=== PATIENT | male | born 1950 | race Caucasian/White ===

== ENCOUNTER 2019-03-13 13:34 | Inpatient (IN) ==
[2019-03-13] MEDS ORDERED: TORADOL IV ONE (14:00)
[2019-03-13] MEDS ORDERED: NS 1,000 ML IV ONE (14:01)
[2019-03-13 14:28] LABS: BASO# 0.04 X1000 (0.0-0.2); BASO% 0.4 % (0.0-0.8); EOS# 0.08 X1000 (0.0-0.7); EOS% 0.8 % (0.0-10.0); HEMOGLOBIN 8.2 g/dL (14.0-18.0); LYMPH# 0.94 X1000 (1.2-3.4); LYMPH% 9.2 % (20.5-51.1); MCH 28.4 PG (27-31); MCHC 31.5 g/dL (33-37); MONO# 0.63 X1000 (0.11-0.59); MONO% 6.2 % (1.7-9.3); MPV 9.5 FL (7.4-10.4); NEUT# 8.49 X1000 (1.4-6.5); NEUT% 83.4 % (42.2-75.2); PLT 125 X1000 (130-400); RBC 2.89 XMIL (4.7-6.1); RDW 15.2 % (11.5-14.5); WBC 10.18 X1000 (4.8-10.8)
--- NOTE | 2019-03-13 14:30 | Diag Imaging Result Doc PS360 ---
EXAM: CT ABD/PELVIS W/IV CONT ONLY HISTORY: abominal pain, pulsating abdomen TECHNIQUE: Emergency CT of the abdomen and pelvis with intravenous contrast COMPARISON: None. FINDINGS: There is an extremely large abdominal aortic aneurysm. This begins just beneath the renal arteries. This measures 12.1 cm in AP diameter and at least 13.6 cm in transverse diameter. This extends to the level of the common iliac arteries. The right common iliac artery measures 1.7 cm in diameter and the left common iliac artery measures 1.7 cm in diameter. There is a para-aortic hematoma on the right measuring 2 cm in thickness. This extends into the right pelvis. There is a 2.2 cm hepatic cyst and there is fatty infiltration of the liver. Normal spleen, pancreas, gallbladder, adrenal glands, and right kidney. There are left parapelvic renal cyst. No bowel obstruction. There is stool throughout the colon. The urinary bladder is distended and is normal. Small amount of free fluid is found in the pelvis. IMPRESSION: Extremely large abdominal aortic aneurysm with an adjacent hematoma. This report was discussed with Everette Kruse in the emergency room on 03/13/2019 at 2:25 PM and was readback. This exam was performed using automated exposure control, adjustment of mA or kV according to patient size, and/or use of iterative reconstruction technique. Electronically signed by Ben Hess 03/13/2019 2:28 PM
[2019-03-13 14:37] LABS: ALB/GLOB RATIO 1.4; ALBUMIN 3.2 g/dL (3.5-5.0); CALCIUM 8.3 mg/dL (8.8-10.2); CREATININE 1.3 mg/dL (0.7-1.2); POTASSIUM 4.3 mmol/L (3.5-5.1); TOTAL BILIRUBIN 0.21 mg/dL (0.20-1.00); TOTAL PROTEIN 5.5 g/dL (6.3-8.3)
[2019-03-13 14:43] LABS: INR 1.12; PROTIME 15.4 Seconds (11.0-16.0)
[2019-03-13 14:44] LABS: PTT 24.4 Seconds (22.3-41.8)
[2019-03-13] MEDS ORDERED: INVANZ 1 GM/NS 1 GM/50 ML IVPB IV ONE ×2 (14:46→16:50)
[2019-03-13] MEDS ORDERED: VERSED ONE ×2 (14:48→17:17)
[2019-03-13] MEDS ORDERED: FENTANYL ONE (14:48)
[2019-03-13] MEDS ORDERED: XYLOCAINE-MPF 2% ONE (14:48)
[2019-03-13] MEDS ORDERED: ZEMURON ONE ×3 (14:48→17:01)
[2019-03-13] MEDS ORDERED: QUELICIN (DOSE) ONE (14:48)
[2019-03-13] MEDS ORDERED: EPINEPHRINE SYRINGE ONE (14:49)
[2019-03-13] MEDS ORDERED: SODIUM BICARBONATE 8.4% ONE ×2 (14:49→16:29)
--- NOTE | 2019-03-13 14:51 | PROVIDER DOCUMENTATION ---
This chart was entered by Ashley Mendiola Scribe, acting as scribe for Everette Kruse MD. HPI-Abdominal Pain/GI Problem - General Chief Complaint: Abdominal Pain Stated Complaint: abdominal pain Time Seen by Provider: 03/13/19 13:41 Source: patient Allergies/Adverse Reactions: Patient Allergies Allergy/AdvReac Type Severity Reaction Status Date / Time No Known Allergies Allergy Verified 03/13/19 14:04 Home Medications: Home Medication List Medication Instructions Recorded Confirmed Last Taken Type NK [No Home Medications] 03/13/19 03/13/19 Unknown History - History of Present Illness-ABD Nature of Presenting Problems: Patient is a 68 year old male who presents to the ED via EMS with epigastric abdominal pain that radiates to back that started this morning. EMS states patient's blood pressure was 80 systolic. Does not report nausea and vomiting. Abdominal Pain Onset Location: reports: epigastric Pain Radiation: reports: back Quality of Pain: reports: sharp, tearing Severity in ED: reports: mild Onset/Duration: reports: this morning Timing: reports: still present Activities at Onset: reports: light activity Modifying Factors: improves with: nothing Associated Symptoms: reports: denies symptoms Similar Symptoms Previously?: No Recently seen or treated by another doctor?: No Review of Systems - Adult - REVIEW OF SYSTEMS - ADULT Constitutional: reports: no symptoms reported. denies: chills, fever, fatique Eyes: reports: no symptoms reported Ears, Nose, Mouth & Throat: reports: no symptoms reported Cardiovascular: reports: no symptoms reported Respiratory: reports: no symptoms reported Gastrointestinal: reports: see HPI, abdominal pain (epigastric). denies: diarrhea, nausea, vomiting Genitourinary: reports: no symptoms reported Musculoskeletal: reports: see HPI, back pain. denies: muscle aches, neck pain Integumentary: reports: no symptoms reported Neurological: reports: no symptoms reported Psychiatric: reports: no symptoms reported Endocrine: reports: no symptoms reported Hematologic/Lymphatic: reports: no symptoms reported Allergic/Immunologic: reports: no symptoms reported All Other Systems: Reviewed and Negative Past History - Adult - PAST MEDICAL HISTORY-ADULT Review of Records: reports: Nursing Assessment Review, Medications Reviewed, Social history reviewed & non-contributory. Major Childhood Illnesses: reports: denies history Cardiovascular: reports: denies history Respiratory: reports: denies history Gastrointestinal: reports: denies history Obstetrical/Gynecological: reports: denies history Genitourinary: reports: denies history Musculoskeletal: reports: denies history Neurological: reports: denies history Psychiatric: reports: denies history Endocrine/Immune: reports: denies history Other Conditions: reports: denies history - PRIOR SURGERIES/PROCEDURES Surgical/Procedure History: reports: reviewed, not pertinent - IMMUNIZATION STATUS Childhood Immunizations: See Nurse Assessment Flu Vaccine: See Nurse Assessment - FAMILY HISTORY Family History: reviewed, not pertinent - SOCIAL HISTORY Smoking: cigarettes, less than 1 pack/day Provider spent 3-5 mins advising pt. on dangers of tobacco.: Discussed manners to quit use, and f/u contacts for add'l counseling. Substance Use: denies Physical Exam-General - PHYSICAL EXAM-ADULT Initial Vital Signs Reviewed: Yes - CONSTITUTIONAL General Appearance: alert, no apparent distress. negative: lethargic, slow to respond - HEAD, EARS, NOSE, MOUTH & THROAT HENMT: normocephalic/atraumatic, moist mucous membranes. negative: angioedema, hearing deficit - RESPIRATORY Respiratory: chest non-tender, lungs clear, normal breath sounds. negative: crackles, rales, rhonchi - CARDIOVASCULAR Cardiovascular: normal peripheral pulses, regular rate, rhythm. negative: tachycardia, systolic murmur - GASTROINTESTINAL (ABDOMEN) Abdominal Exam: normal bowel sounds, rigid (epigastric), tenderness (epigastric) , mass (pulsating mass to right epigastric). negative: abdominal bruit - MUSCULOSKELETAL Extremity: non-tender, normal inspection. negative: deformity, erythema, swelling - SKIN Integumentary: normal color, normal turgor, warm/dry. negative: cyanosis, ecchymosis, erythema, jaundice - NEUROLOGIC Neurologic: grossly normal. negative: aphasia, facial droop - PSYCHIATRIC Psych/Mental Status: normal mood/affect, oriented x 3. negative: anxious, paranoid Progress - PLAN OF CARE/RESULTS Progress/Plan/Lab Results: Orders Category Date Time Status Saline Loc NOW Care 03/13/19 13:[address] ABD/PELVIS W/IV CONT ONLY [CT] Stat Exams 03/13/19 13:56 Ordered CBC WITH ELECTRONIC DIFF [HEME] Stat Lab 03/13/19 13:54 Uncollected COMPREHENSIVE METABOLIC PANEL [CHEM] Stat Lab 03/13/19 13:54 Uncollected URINALYSIS W/POSS RFLX CULT [URINALYSIS] Stat Lab 03/13/19 13:54 Uncollected 1433 - Dr. Kruse consulted with Dr. Varela about patient. Dr. Varela states he will be coming in with Dr. Brink for surgery. CT Scan shows 12x13 rupture AAA extending from beneath renal arteries to bifurcation of illiac arteries. Result Diagrams: 03/13/19 14:00 03/13/19 14:00 - EKG 1 Time of EKG reading by physician:: 14:33 EKG Read and Signed by:: Everette Kruse EKG Interpretation (*Must complete 3 of following elements*): Normal Rate: 70 Rhythm: normal sinus rhythm [place]: normal QRS: normal [place] Interval: normal ST Wave: normal Comments: normal ECG - CT/MRI 1 CT Study: Abdomen, Pelvis Impression: See EMR Report (EXAM: CT ABD/PELVIS W/IV CONT ONLY HISTORY: abominal pain, pulsating abdomen TECHNIQUE: Emergency CT of the abdomen and pelvis with intravenous contrast COMPARISON: None. FINDINGS: There is an extremely large abdominal aortic aneurysm. This begins just beneath the renal arteries. This measures 12.1 cm in AP diameter and at least 13.6 cm in transverse diameter. This extends to the level of the common iliac arteries. The right common iliac artery measures 1.7 cm in diameter and the left common iliac artery measures 1.7 cm in diameter. There is a para-aortic hematoma on the right measuring 2 cm in thickness. This extends into the right pelvis. There is a 2.2 cm hepatic cyst and there is fatty infiltration of the liver. Normal spleen, pancreas, gallbladder, adrenal glands, and right kidney. There are left parapelvic renal cyst. No bowel obstruction. There is stool throughout the colon. The urinary bladder is distended and is normal. Small amount of free fluid is found in the pelvis. IMPRESSION: Extremely large abdominal aortic aneurysm with an adjacent hematoma. This report was discussed with Everette Kruse in the emergency room on 03/13/2019 at 2:25 PM and was readback. This exam was performed using automated exposure control, adjustment of mA or kV according to patient size, and/or use of iterative reconstruction technique. Electronically signed by Ben Hess 03/13/2019 2:28 PM 03/13/19 1422 Interpreting Physician: Ben Hess MD Dictated Date/Time: 03/13/19 1423 cc: Everette Kruse MD; None,PCP) - CONSULTS/PCP/HOSPITALIST Notification #1 *Consult/PCP/Hospitalist*: Dr. Varela Time Discussed: 14:23 Reason/Comments: Dr. Kruse consulted with Dr. Varela about patient. Consult Disposition: other (Dr. Varela states he will contact Dr. Brink) #2 Consult: Dr. Hess (Radiologist) Time Discussed: 14:26 Reason/Comments: Dr. Kruse consulted with Dr. Hess about patient's CT. Consult Disposition: other (Dr. Hess states patient's CT shows a 12 by 13 cm abdominal aortic aneurysm with an adjacent hematoma) #3 Consult: Dr. Brink Time Discussed: 14:32 Reason/Comments: Dr. Kruse consulted with Dr. Brink about patient Consult Disposition: Will see in ED Departure - Departure Date of Disposition Decision: 03/13/19 Time of Disposition Decision: 14:45 (transfer to Surgery) DIAGNOSIS: AAA (abdominal aortic aneurysm, ruptured) Disposition: ADMITTED INPATIENT 09 Certified Medical Emergency: Emergent Condition: Critical Additional Freetext Instructions: We have examined and treated you today on an emergency basis only. This was not a substitute for, or an effort to provide, complete medical care. In most cases, you must let your doctor check you again. Tell your doctor about any new or lasting problems. We cannot recognize and treat all injuries or illnesses in one Emergency Department visit. If you had special tests, such as X-rays or CT scans, will be reviewed by radiologist and will call you if there are any new suggestions Follow up with primary care provider in 1 to 2 days if no improvement. If you do not have a primary care provider, you need to choose one as soon as possible. Take medicines as prescribed. Monitor for any side effects or adverse events from medications. If any side effect, adverse event or rash develops, or if you suspect any other adverse reaction to the medication, then discontinue the medication immediately and contact clinic /PCP or go to the nearest ER. Narcotic meds / sedative meds instruction - patent advised not to drive, operate any machinery or go into water after taking meds as it may impair mental ability to react to the situation in an appropriate manner. Continue other current medicines. Follow up with PCP within 24-48 hours, or sooner if symptoms worsen or fail to improve. Patient / guardian verbalizes understanding of treatment plan, medication, and side effects and agrees with treatment plan. Patient leaves ER in stable condition and ambulatory state. Return to ER as needed. Discharge instructions reviewed verbally and given to patient in written form. Follow up with primary care provider. Referrals and Follow-Ups: None,PCP [Primary Care Provider] - - Critical Care Note This patient required my direct & personal management of CC.: Yes Total Time (mins): 95 Critical Care Statement: This patient required my direct personal management to treat or rule out processes, the absence of which, could potentiallly result in sudden, clinically significant life or limb threatening deterioration. Attestation - Physician/ DARRELL Attestation Patient care was provided by Advanced Practice Provider:: No The physician spent face to face time with patient:: Yes Advanced Practice Provider documentation review:: Supervising physician onsite and consulted in the evaluation and care of this patient. The physician did have a face to face encounter with the patient. This chart was documented by the indicated scribe, (Ashley Mendiola Scribe) and accurately reflects the services I performed and decisions made by me, Everette Kruse MD, as attested by the provider's signature.
[2019-03-13] MEDS ORDERED: DIPRIVAN 1% ONE (14:57)
--- NOTE | 2019-03-13 15:07 | Diag Imaging Result Doc PS360 ---
EXAM: CHEST-1 VIEW HISTORY: surgery clear TECHNIQUE: Chest single view COMPARISON: None. FINDINGS: The lungs are well expanded. The heart is not enlarged. The vessels are not distended. There are no infiltrates. No effusion identified. IMPRESSION: No acute abnormality. Electronically signed by Ben Hess 03/13/2019 3:04 PM
[2019-03-13] MEDS ORDERED: PITRESSIN ONE (15:11)
[2019-03-13] MEDS ORDERED: NEO-SYNEPHRINE ONE ×2 (15:11→16:11)
[2019-03-13] MEDS ORDERED: SODIUM CHLORIDE 0.9% 10 ML ONE (15:12)
[2019-03-13] MEDS ORDERED: ALBUMIN 25% ONE (15:17)
[2019-03-13] MEDS ORDERED: MANNITOL ONE (15:40)
[2019-03-13] MEDS ORDERED: CALCIUM CHLORIDE ONE ×2 (15:43→16:07)
[2019-03-13] MEDS ORDERED: CALCIUM CHLORIDE SYRINGE ONE (16:29)
[2019-03-13] MEDS: NEO-SYNEPHRINE 50 MG in NS 250 ML IV SCH ×3 (17:42→21:57)
[2019-03-13] MEDS ORDERED: MORPHINE IV PRN (17:50)
--- NOTE | 2019-03-13 17:53 | Diag Imaging Result Doc PS360 ---
EXAM: KUB ABDOMEN HISTORY: postop - verify no retained items TECHNIQUE: Abdomen three views COMPARISON: None. FINDINGS: There are multiple midline skin helena. A nasogastric tube enters the stomach. No surgical clips or needle identified within the abdomen. Electronically signed by Ben Hess 03/13/2019 5:51 PM
[2019-03-13 18:09] LABS: ALLEN TEST NO; BE -6.4 mmoll (-3.0-3.0); BLOOD TYPE ARTERIAL; METHB 0.6 % (0.0-1.5); MODALITY VENTILATOR; O2(CT) 12.9 mL/dL (15.0-23.0); O2HB 97.3 % (95.0-99.0); PCO2(98.6) 41 mmHg (35-45); PO2(98.6) 138 mmHg (60-100); SAMPLE BLOOD; SAO2 99.6 % (95.0-100.0); SRATE 12 BPM; THB 9.2 g/dL (11.5-17.4); TVOL 650 mL; pH(98.6) 7.29 (7.35-7.45)
[2019-03-13] MEDS: LR 1,000 ML IV SCH (18:10)
[2019-03-13] MEDS: PROTONIX IV SCH (18:11)
[2019-03-13] MEDS: SODIUM CHLORIDE 0.9% INJ SCH (18:11)
--- NOTE | 2019-03-13 18:17 | Diag Imaging Result Doc PS360 ---
EXAM: CHEST-PORTABLE HISTORY: post op TECHNIQUE: Chest single view COMPARISON: 2:37 PM FINDINGS: Endotracheal tube in good position with the tip located 4 to 5 cm above the sofía. A nasogastric tube overlies the esophagus and stomach. The lungs are well expanded. Electronically signed by Ben Hess 03/13/2019 6:15 PM
[2019-03-13 18:29] LABS: URINE SOURCE CATH
[2019-03-13 18:30] LABS: AGAP 10; BUN 34 mg/dL (8-22); CALCIUM 9.5 mg/dL (8.8-10.2); CHLORIDE 108 mmol/L (98-107); COSMO 292; CREATININE 1.2 mg/dL (0.7-1.2); ESTIMATED GFR > 60; GLUCOSE 213 mg/dL (70-104); MAGNESIUM 1.9 mg/dL (1.5-2.7); POTASSIUM 4.8 mmol/L (3.5-5.1); SODIUM 139 mmol/L (136-145); TCO2 21 mmol/L (25-35)
[2019-03-13 18:35] LABS: BILIRUBIN URINE NEGATIVE (NEGATIVE); BLOOD URINE SMALL (NEGATIVE); COLOR YELLOW; GLUCOSE URINE NEGATIVE (NEGATIVE); KETONE URINE NEGATIVE (NEGATIVE); LEUKOCYTES URINE NEGATIVE (NEGATIVE); NITRITE URINE NEGATIVE (NEGATIVE); PH URINE 5.5; PROTEIN URINE 100 mg/dL (NEGATIVE); TURBIDITY URINE CLEAR (CLEAR); UROBILINOGEN URINE NORMAL (NORMAL)
[2019-03-13] MEDS: NS 500 ML IV SCH ×2 (18:35→19:47)
[2019-03-13 18:36] LABS: UR EPITHELIAL CELLS <10 /HPF (<10); URINE BACTERIA NEGATIVE /HPF; URINE WBC <10 /HPF (<10)
[2019-03-13 18:46] LABS: BASO# 0.03 X1000 (0.0-0.2); BASO% 0.3 % (0.0-0.8); EOS# 0.02 X1000 (0.0-0.7); EOS% 0.2 % (0.0-10.0); HEMATOCRIT 31.2 % (42.0-52.0); HEMOGLOBIN 10.3 g/dL (14.0-18.0); IMM GRAN# 0.04 X1000 (0.0-0.04); IMM GRAN% 0.4 % (0.0-0.5); LYMPH# 1.24 X1000 (1.2-3.4); LYMPH% 13.3 % (20.5-51.1); MCH 29.5 PG (27-31); MCV 89.4 FL (81-99); MONO% 6.4 % (1.7-9.3); MPV 9.8 FL (7.4-10.4); NEUT# 7.38 X1000 (1.4-6.5); NEUT% 79.4 % (42.2-75.2); PLT 48 X1000 (130-400); RBC 3.49 XMIL (4.7-6.1); RDW 14.7 % (11.5-14.5); WBC 9.31 X1000 (4.8-10.8)
--- NOTE | 2019-03-13 19:47 | OPERATIVE NOTE ---
PROCEDURE DATE: 03/13/2019 PREOP DIAGNOSIS: Ruptured abdominal aortic aneurysm. POSTOP: Ruptured abdominal aortic aneurysm. PROCEDURE PERFORMED: Open repair of ruptured abdominal aortic aneurysm with 16 x 8 cm bifurcated Dacron graft. ESTIMATED BLOOD LOSS: 8500 mL. SPECIMENS: Aneurysm contents. RN OFFICE: Dr. Brink was present for the entirety of the case. He facilitated exposure, repair, and control of the ruptured aneurysm. ANESTHESIA: General. INDICATIONS: This is a 68-year-old gentleman with acute onset of abdominal pain, self-reported pulsatile mass for quite some time. Imaging showed rupture into the right-sided retroperitoneum of a 13.6 cm aneurysm infrarenal to the bifurcation. FINDINGS: There was a contained retroperitoneal rupture of the large infrarenal aneurysm extending to the bifurcation of the left iliac into the common iliac on the right. OPERATIVE NOTE: Risks, benefits, alternatives discussed with the patient. He consented to the procedure, seen preoperatively and surgical site was confirmed. He was taken emergently to the operating room. IV antibiotics were administered. Trejo catheter was placed as well as a nasogastric tube. His hair was removed clippers. His abdomen was prepped widely with chlorhexidine and draped in the usual fashion. After time-out, made a midline incision from the xiphoid carrying down the pubis and entered the abdomen open controlled fashion. We gained immediate control of the supraceliac aneurysm dissecting the esophagus laterally using blunt dissection with a aortic clamp. We gained control here. We confirmed loss of pulse within the aneurysm sac. There was a very large hematoma pretty much encompassing the entire abdominal aorta down to the iliac. After gaining proximal control we opened the hematoma sac and identified the anterior wall of the aneurysm. This allowed us to identify the iliacs both on the left and the right and we gained control of these. At this point we had good inflow and outflow control. We extended our opening in the aneurysm sac up to the proximal neck. We gained control within the lumen using our hands. We were able to move an additional clamp below the renal vein in the renal arteries. At this point, we again confirmed good inflow and outflow control. After inspecting proximally we selected a 16 mm Dacron graft and using a 3-0 Prolene suture we created a proximal anastomosis. We then took off our aortic clamp. Some repair sutures were required and we did this but had good hemostasis proximally. We then created a left iliac anastomose proximal to the bifurcation using another 3-0 Prolene in the end to end fashion. We trimmed the graft and beveled it to provide good size match. We took off our clamp and then perfused the left leg. He tolerated this well. We then in a similar fashion created a end-to-end anastomosis on the right. We noted good back bleeding prior to completion both of the legs and suctioned the thrombus from the graft noting good inflow. We flushed this well. Completed our anastomosis. There was good femoral pulses noted at this point. There were some repair sutures required. Blood pressure was normal at this point with his ongoing resuscitation and there was no bleeding noted. We did hold pressure on the needle hole proximally but we were able to get hemostasis here as well. We left some Gel-Foam in this location. The hernia sac was then closed over the graft using a running 2-0 Vicryl then reapproximated the retroperitoneum defect as well. All bowel was well perfused. He had palpable femoral pulses. We inspected below the diaphragm. There was no bleeding noted here. We placed the bowel back in its anatomic position with no kinking. Placed omentum over it, closed the fascia with a #1 running looped PDS. The skin was closed with clips. We irrigated with warm saline prior to abdominal closure. Overall he tolerated it well. He was transfused 8 unit of packed cells, 4 units of FFP and 4 L of crystalloid. Transferred to the ICU intubated. We did obtain an x-ray at the end of the case as preoperative case counts were not done but counts were correct. Postprocedure these films did not show any retained laps or instruments. I spoke with the family. Transferred to ICU for continued resuscitation and labs. Will leave him intubated and sedated. cc: Hammad Varela MD [facility]
[2019-03-13] MEDS: MORPHINE IV PRN (20:49)
[2019-03-14] MEDS: NEO-SYNEPHRINE 50 MG in NS 250 ML IV SCH ×3 (00:41→08:06)
[2019-03-14] MEDS: MORPHINE IV PRN ×5 (01:03→20:09)
[2019-03-14] MEDS: LR 1,000 ML IV SCH ×2 (01:05→17:08)
--- NOTE | 2019-03-14 03:55 | HISTORY AND PHYSICAL ---
DATE: 03/13/2019 HISTORY OF PRESENT ILLNESS: This is a 68-year-old gentleman with a history of smoking, but no other chronic medical conditions, who developed acute onset of abdominal pain extending to the right side with presyncope while swimming at [employer]. In the ER, he was found to be hypotensive and diaphoretic. CT scan showed a ruptured 13.6 cm aneurysm. He said he quit smoking 30 years ago. He has noticed distention of his abdomen with a pulsatile mass but has not seen a doctor about this. He otherwise works, in his usual state of health prior to this. Denies any leg pain currently. No back pain, just right-sided abdominal pain. MEDICAL HISTORY: Negative. SURGICAL HISTORY: Negative. SOCIAL HISTORY: Distant history of smoking. No alcohol. No drugs. FAMILY HISTORY: Reviewed and noncontributory. REVIEW OF SYSTEMS: Otherwise 10 point negative. PHYSICAL EXAMINATION: His blood pressure systolic is 120s. He is afebrile. He is not tachycardic. General: He is alert, somewhat diaphoretic, but no acute distress. Cardiovascular: Normal rate. Pulmonary: No increased work of breathing. Abdomen: Distended. There is a pulsatile mass, tender over the right side. Integument is warm but somewhat diaphoretic. Peripheral Vascular: He has got a pulsatile abdominal mass. His femoral, popliteal, and pedal pulses are palpable with no chronic ischemic changes. Psychiatric: Appropriate affect. Neurologic: No gross deficits. LABS: White count is 10, hematocrit is 26, platelets 125,000. Creatinine is 1.3. INR is 1.12. Bilirubin is normal. Albumin is 3.2. Review of the CT scan shows a 13.5 cm aneurysm with a contained hematoma extending to the right retroperitoneum, otherwise normal suprarenal and iliac diameters with flow noted distally. ASSESSMENT/PLAN: A 68-year-old gentleman with a ruptured abdominal aortic aneurysm. He is hemodynamically stable currently. He was resuscitated with crystalloid by the emergency department, but I have instructed them to allow permissive hypotension as long as he is mentating. He has two large-bore intravenous lines. He is being crossmatched. We have had a long discussion regarding the risks of the operation, the high risk of mortality both during the operation and postoperatively, and the risks of complications including renal dysfunction, bowel ischemia, distal lower extremity ischemia. He understands all this and consents, and will go the operating room emergently. cc: Hammad Varela MD
[2019-03-14 04:40] LABS: ALLEN TEST YES; BE -6.3 mmoll (-3.0-3.0); BLOOD TYPE ARTERIAL; METHB 1.6 % (0.0-1.5); O2(CT) 16.3 mL/dL (15.0-23.0); PCO2(98.6) 30 mmHg (35-45); PO2(98.6) 129 mmHg (60-100); SAMPLE BLOOD; SAO2 98.8 % (95.0-100.0); SRATE 12 BPM; THB 11.9 g/dL (11.5-17.4); TVOL 650 mL; pH(98.6) 7.38 (7.35-7.45)
[2019-03-14 04:49] LABS: MODALITY VENTILATOR
[2019-03-14 05:15] LABS: BASO# 0.02 X1000 (0.0-0.2); BASO% 0.1 % (0.0-0.8); EOS# 0.01 X1000 (0.0-0.7); EOS% 0.1 % (0.0-10.0); HEMATOCRIT 34.3 % (42.0-52.0); HEMOGLOBIN 12.1 g/dL (14.0-18.0); IMM GRAN# 0.05 X1000 (0.0-0.04); IMM GRAN% 0.3 % (0.0-0.5); LYMPH# 1.61 X1000 (1.2-3.4); LYMPH% 8.5 % (20.5-51.1); MCHC 35.3 g/dL (33-37); MCV 84.9 FL (81-99); MONO# 1.35 X1000 (0.11-0.59); MONO% 7.2 % (1.7-9.3); MPV 11.1 FL (7.4-10.4); NEUT# 15.83 X1000 (1.4-6.5); NEUT% 83.8 % (42.2-75.2); PLT 121 X1000 (130-400); RBC 4.04 XMIL (4.7-6.1); RDW 14.9 % (11.5-14.5); WBC 18.87 X1000 (4.8-10.8)
[2019-03-14 05:20] LABS: INR 1.23; PROTIME 16.5 Seconds (11.0-16.0)
[2019-03-14 05:21] LABS: PTT 31.1 Seconds (22.3-41.8)
[2019-03-14] MEDS: ZOFRAN IV PRN (06:04)
[2019-03-14 07:05] LABS: ALB/GLOB RATIO 1.5; ALBUMIN 3.2 g/dL (3.5-5.0); CALCIUM 8.7 mg/dL (8.8-10.2); CREATININE 2.1 mg/dL (0.7-1.2); TOTAL BILIRUBIN 0.74 mg/dL (0.20-1.00); TOTAL PROTEIN 5.4 g/dL (6.3-8.3)
[2019-03-14 07:20] LABS: POTASSIUM 6.8 mmol/L (3.5-5.1)
--- NOTE | 2019-03-14 07:39 | EKG Report ---
Test Performed on : 03/13/2019 2:33:03 PM Test Reason : AAA Blood Pressure : / mmHG Vent. Rate : 070 BPM Atrial Rate : 070 BPM P-R Int : 166 ms QRS Dur : 084 ms QT Int : 388 ms P-R-T Axes : 079 080 079 degrees QTc Int : 419 ms Normal sinus rhythm. Normal ECG No previous ECGs available Unconfirmed Result
[2019-03-14] MEDS ORDERED: CALCIUM GLUCONATE 1 GM in NS 50 ML IV ONE (07:41)
[2019-03-14] MEDS ORDERED: SODIUM BICARBONATE 8.4% IV PUSH ONE ×2 (07:43→15:41)
[2019-03-14] MEDS ORDERED: D50W SYRINGE IV ONE ×3 (07:45→17:00)
[2019-03-14] MEDS ORDERED: SODIUM BICARBONATE 8.4% 150 MEQ in D5W 1,000 ML IV SCH ×2 (07:45→10:00)
[2019-03-14] MEDS ORDERED: HUMULIN R IV ONE ×2 (07:46→15:39)
[2019-03-14 13:16] LABS: ALLEN TEST NO; BE 0.1 mmoll (-3.0-3.0); BLOOD TYPE ARTERIAL; HCO3-(ACT) 24.9 mmoll (20.0-26.0); METHB 0.7 % (0.0-1.5); O2(CT) 13.4 mL/dL (15.0-23.0); PCO2(98.6) 33 mmHg (35-45); PO2(98.6) 54 mmHg (60-100); SAMPLE BLOOD; SAO2 92.3 % (95.0-100.0); THB 10.6 g/dL (11.5-17.4); pH(98.6) 7.46 (7.35-7.45)
[2019-03-14 13:18] LABS: MODALITY VENTILATOR; O2HB 89.9 % (95.0-99.0)
[2019-03-14 14:06] LABS: BASO# 0.01 X1000 (0.0-0.2); BASO% 0.1 % (0.0-0.8); EOS# 0.02 X1000 (0.0-0.7); EOS% 0.1 % (0.0-10.0); HEMOGLOBIN 10.7 g/dL (14.0-18.0); IMM GRAN# 0.05 X1000 (0.0-0.04); IMM GRAN% 0.3 % (0.0-0.5); LYMPH# 1.56 X1000 (1.2-3.4); LYMPH% 10.1 % (20.5-51.1); MCH 29.5 PG (27-31); MCHC 34.5 g/dL (33-37); MCV 85.4 FL (81-99); MONO# 1.29 X1000 (0.11-0.59); MONO% 8.4 % (1.7-9.3); MPV 10.5 FL (7.4-10.4); NEUT# 12.48 X1000 (1.4-6.5); PLT 109 X1000 (130-400); RBC 3.63 XMIL (4.7-6.1); RDW 14.9 % (11.5-14.5); WBC 15.41 X1000 (4.8-10.8)
--- NOTE | 2019-03-14 14:36 | GENERAL SURGERY PROGRESS NOTE ---
DATE: 03/14/2019 SUBJECTIVE: Much improved from a respiratory standpoint overnight on minimal settings. He is awake. He is following commands. Moving all extremities. Low-dose Tristan-Synephrine overnight but on a weaning dose. OBJECTIVE: On exam, he has an NG tube in place. Abdomen has an appropriate amount of drainage on the dressing. It is soft. He has palpable pedal pulses. Feet are warm and well-perfused toes. White count is 15 this morning, hematocrit is 31. ABG, 7.46, 7.38, CO2 is 30, PO2 is 129. Potassium 6.8 this morning. Creatinine is 2.1. He is making some urine. ASSESSMENT/PLAN: A 68-year-old gentleman status post repair of ruptured abdominal aortic aneurysm. His hemodynamics are much improved. He is perfusing distally well. He did have a bump in his creatinine. We will continue his hydration. I have treated his potassium medically with bicarb, insulin, and dextrose, and switch him to a bicarbonate infusion. We will monitor him closely. I suspect that this is expected given his crossclamp of his aorta but I do anticipate recovering. Pulmonology is following regarding his ventilator management. Hopefully, will be able to extubate soon. We will monitor both his hemodynamics and respiratory status in the morning. Plan on repeating his labs at noon. cc: Hammad Varela MD
[2019-03-14 14:59] LABS: CALCIUM 8.3 mg/dL (8.8-10.2); CREATININE 2.5 mg/dL (0.7-1.2); POTASSIUM 5.7 mmol/L (3.5-5.1)
[2019-03-14] MEDS ORDERED: ALBUTEROL 0.5% INH CONC FOR HYPERKALEMIA INH ONE (16:00)
[2019-03-14] MEDS: PROTONIX IV SCH (17:10)
--- NOTE | 2019-03-14 17:39 | NEPHROLOGY CONSULTATION ---
DATE: 03/14/2019 REASON FOR ADMISSION: Abdominal pain extending to the right side presyncopal while swimming at [employer] . REASON FOR CONSULT: Acute kidney injury with oliguria. CONSULTING PHYSICIAN: Dr. Brent Varela. HISTORY OF PRESENT ILLNESS: Mr. Reyna is a 68-year-old white male who has no medical conditions, takes no medication at home was found to be in acute onset of abdominal pain extending to the right side with presyncopal episodes. He was swimming at [employer]. He was brought by paramedics to the emergency room. He was hypotensive and diaphoretic. CT of the abdomen showed a ruptured 13.6 cm aneurysm. The patient states in the ER that he had noticed distention of his abdomen with a pulsatile mass, had not been seen by a physician. Denies at that time any chest pain or increased work of breathing. No nausea and vomiting. In the emergency room patient had a blood pressure that required Tristan-Synephrine. Dr. Varela was immediately called. He was taken to surgery. In surgery he had an abdominal aortic aneurysm repair. He was resuscitated post surgery. During the surgery period of time he was intubated, brought to the ICU, remained on Tristan- Synephrine which was then weaned off. He was extubated this a.m., during and after surgery he received 10 units of packed red blood cells. He received 4 units of FFP, 1 unit of platelets. He currently has sodium bicarbonate drip infusing. His Tristan-Synephrine is on standby. He is currently on 30% face mask. Has an NG tube to low intermittent suction. He is awake and alert, currently denies any nausea or vomiting. No increased work of breathing. No chest pain. Positive for abdominal pain and discomfort. PAST MEDICAL HISTORY: Is negative. PAST SURGICAL HISTORY: Positive for a laceration to his right elbow in 2016 requiring sutures in ED at that time only requiring Pepcid and Motrin until elbow was healed. SOCIAL HISTORY: He has family who are attentive to his care. Distant history of smoking. No alcohol. No drugs. FAMILY HISTORY: Noncontributory. REVIEW OF SYSTEMS: Times 10 with pertinent positives listed above in the HPI. Patient's most recent vital signs, temperature of 100.2 degrees, blood pressure 115/76, heart rate 100, respirations 18, baseline creatinine in 2016 was 1.3. LAB: Sodium 141, potassium 5.7, chloride 103, CO2 25, BUN 53, creatinine 2.5, glucose of 195, anion gap of 13, calcium 8.3. White count 15.41, hemoglobin 10.7, hematocrit 31, platelet count 109,000. ABGs pH 7.46, CO2 33, PO2 54, bicarb 24.9 on 30% FiO2 now on 30% face mask. He has had 1293 in the last 24 hours, only 200 mL out. His estimated blood loss was 8500 mL not documented in his negative blood loss into the . Trejo catheter is in place. Patient had 975 mL out in 24 hours as of this a.m. PHYSICAL EXAM: General: This is a 68-year-old white male, he appears in no acute distress. Skin: Warm and dry. HEENT: Normocephalic, atraumatic. Conjunctiva is pale pink. He has MARIPOSA. Mucous membranes are dry. Neck supple. Trachea midline. No evidence of JVD. He has an NG tube to low intermittent suction to the left naris. This has minimal blood-tinged material inside the tubing. Lungs: Clear to auscultation bilateral, equal excursion. He is currently on O2 support. Abdomen: Has dressing dry and intact. No bowel sounds auscultated. Genitourinary: Trejo catheter is in place. Diminished urine output. Extremities: Have no edema, no clubbing or cyanosis. Neurological: He is awake and alert x2. ASSESSMENT AND PLAN: 1. Acute kidney injury on chronic kidney disease stage 3, patient's baseline creatinine is 1.3 from 2016. Creatinine today is up to 2.5 with a BUN of 53. The patient has multifactorial ATN. He was hypotensive immediately post surgery requiring Tristan- Synephrine support, now improved. He was resuscitated with fluid volume and with blood products x15 units as documented. We will check urine electrolytes, we will check a renal ultrasound to determine patient's fluid volume resuscitation is adequate. 2. Electrolytes. Patient remains hyperkalemic. He has received 2 doses of D50 insulin and sodium bicarbonate. We will add albuterol inhaler for hyperkalemia on this last treatment. Recheck potassium within an hour after this treatment has been given. It has responded nicely from 6.8 to 5.7 on his last labs. 3. Acid-base balance. This is acceptable. Anion gap of only 13. 4. Anemia. This is improved status post 8.5 L blood loss with 15 units of blood products replaced. 5. Rupture of abdominal aortic aneurysm status postop day #[address] Varela. Like to thank you for allowing us to follow with this patient. Dictated by CLARK Balderas for Lamin Lunsford MD Face to face encounter, data reviewed, discussed with Tess Goldstein on 03/15/19. I agree with the above assessment and plan of care. cc: CLARK Balderas MD R. Tyler Harney, MD [facility]
[2019-03-14 18:00] LABS: URINE SOURCE CATH
[2019-03-14 18:16] LABS: BILIRUBIN URINE NEGATIVE (NEGATIVE); BLOOD URINE NEGATIVE (NEGATIVE); COLOR YELLOW; GLUCOSE URINE 70 mg/dL (NEGATIVE); KETONE URINE TRACE mg/dL (NEGATIVE); LEUKOCYTES URINE NEGATIVE (NEGATIVE); NITRITE URINE NEGATIVE (NEGATIVE); PROTEIN URINE TRACE mg/dL (NEGATIVE); SP GRAVITY URINE 1.035; TURBIDITY URINE CLEAR (CLEAR); UROBILINOGEN URINE 2 mg/dL (NORMAL)
[2019-03-14 18:19] LABS: UR EPITHELIAL CELLS <10 /HPF (<10); URINE BACTERIA NEGATIVE /HPF; URINE RBC <10 /HPF (<10); URINE WBC <10 /HPF (<10)
[2019-03-14 18:33] LABS: UR CREAT RANDOM 237.4 mg/dL (14-26); UR PROT RANDOM 34.8 mg/dL
[2019-03-14 18:38] LABS: UR SODIUM < 10 mmoll
[2019-03-14 18:53] LABS: URINE CASTS NONE SEEN
--- NOTE | 2019-03-14 20:24 | Diag Imaging Result Doc PS360 ---
US RENAL 2 (RETROPER) COMPLETE - 03/14/2019 INDICATION: decreased renal function TECHNIQUE: COMPARISON: None FINDINGS: There are large surgical bandages covering much of the abdomen. The left kidney is obscured as a result. The right kidney is normal. The right kidney measures 10.7 x 4.1 x 4.5 cm. Cortex measures 9 mm. IMPRESSION: Normal right kidney. The left kidney is obscured by large surgical bandages. Electronically signed by Lavelle Saavedra 03/14/2019 8:22 PM
--- NOTE | 2019-03-14 21:41 | CONSULTATION ---
DATE OF CONSULTATION: 03/14/2019 REQUESTING PROVIDER: Dr. Brent Varela. REASON FOR CONSULTATION: Ventilator management. HISTORY OF PRESENT ILLNESS: This is a 68-year-old male with no significant medical history. He presented to the ER via EMS yesterday with acute onset of epigastric pain radiating to the right side of the back. Upon arrival, he was hypotensive and diaphoretic. CT abdomen and pelvis with contrast revealed extremely large abdominal aortic aneurysm with an adjacent hematoma extending from beneath renal arteries to bifurcation of iliac arteries. He underwent open repair of ruptured abdominal aortic aneurysm with 16 x 8 cm bifurcated Dacron graft by Dr. Varela. He was transferred to the ICU, intubated, and sedated after the surgery for continual resuscitation and rest. The patient currently is still intubated, but not sedated. He opens his eyes and looks around. He turns his head to the fan and tries to tell me to turn the fan on. He shows he is in pain and morphine is not working well enough. There is no family at the bedside. All information is obtained from the E-chart. SOCIAL HISTORY: He is a former smoker and quit for 30 years. He has no alcohol or illicit drug use. FAMILY HISTORY: Unknown. ALLERGIES: No known drug allergies. REVIEW OF SYSTEMS: Difficult to be obtained. PHYSICAL EXAMINATION: Vital Signs: Temperature 99.3, blood pressure 92/70, pulse 114, respiratory rate 15, oxygen saturation 100% on the AC mechanical ventilator with spontaneous rate 12, FiO2 of 40%, tidal volume 650, and PEEP 5. General: Patient is still intubated, but not sedated. He is awake with no acute distress noted. HEENT: Atraumatic. Trachea midline. Mucosa pink and slightly dried. Right eye discolored. Respiratory: Even and unlabored. Symmetrical excursion. Clear to auscultation. Cardiovascular: Sinus tachycardia with regular rate and rhythm. Gastrointestinal: Surgical side in the mid abdomen is covered with dry and clean dressing. Extremities: No pedal edema. No cyanosis. No clubbing. Neurologic: The patient is awake and alert. LAB DATA: White blood cell 18.87, hemoglobin 12.1, hematocrit 34.3, platelets 121,000. Sodium 142, potassium 6.8, chloride 107, carbon dioxide 19, BUN 44, creatinine 2.1, glucose 173. ABGs: pH 7.38, pCO2 30, pO2 129, HC03 20, base excess -6.3, oxyhemoglobin 96. Lactate 4.90. ASSESSMENT: This is a 68-year-old male with no significant medical history. He has been admitted to the ICU for ruptured abdominal aortic aneurysm. 1. Acute hypoxic respiratory failure. 2. Ruptured abdominal aortic aneurysm, status post repair by Dr. Varela yesterday. 3. Acute kidney injury. PLAN: 1. We will start weaning trials today. 2. Continue fluid resuscitation, pressor, and pain medication. 3. Further recommendation pending hospital course. Thank you for the courtesy of this consult. Dictated by CLARK Vale for Mateus Good MD cc: CLARK Vale MD R. Tyler Harney, MD [facility]
[2019-03-15] MEDS: MORPHINE IV PRN ×2 (03:39→12:00)
[2019-03-15 05:04] LABS: ALLEN TEST YES; BE 2.5 mmoll (-3.0-3.0); BLOOD TYPE ARTERIAL; HCO3-(ACT) 26.8 mmoll (20.0-26.0); METHB 1.9 % (0.0-1.5); O2(CT) 12.9 mL/dL (15.0-23.0); O2HB 90.7 % (95.0-99.0); PCO2(98.6) 36 mmHg (35-45); PO2(98.6) 67 mmHg (60-100); SAMPLE BLOOD; THB 10.1 g/dL (11.5-17.4); pH(98.6) 7.47 (7.35-7.45)
[2019-03-15 05:05] LABS: MODALITY COOL AEROSOL
[2019-03-15 05:32] LABS: BASO# 0.02 X1000 (0.0-0.2); BASO% 0.1 % (0.0-0.8); EOS# 0.01 X1000 (0.0-0.7); EOS% 0.1 % (0.0-10.0); HEMATOCRIT 29.5 % (42.0-52.0); HEMOGLOBIN 10.1 g/dL (14.0-18.0); IMM GRAN# 0.05 X1000 (0.0-0.04); IMM GRAN% 0.3 % (0.0-0.5); LYMPH# 1.25 X1000 (1.2-3.4); LYMPH% 8.3 % (20.5-51.1); MCH 29.7 PG (27-31); MCHC 34.2 g/dL (33-37); MCV 86.8 FL (81-99); MONO# 1.01 X1000 (0.11-0.59); MONO% 6.7 % (1.7-9.3); MPV 11.4 FL (7.4-10.4); NEUT# 12.78 X1000 (1.4-6.5); NEUT% 84.5 % (42.2-75.2); PLT 118 X1000 (130-400); RDW 15.1 % (11.5-14.5); WBC 15.12 X1000 (4.8-10.8)
[2019-03-15 06:01] LABS: ALBUMIN 2.6 g/dL (3.5-5.0); CALCIUM 8.5 mg/dL (8.8-10.2); POTASSIUM 5.7 mmol/L (3.5-5.1)
[2019-03-15] MEDS ORDERED: LR 1,000 ML IV ONE (06:53)
--- NOTE | 2019-03-15 06:55 | Diag Imaging Result Doc PS360 ---
EXAM: CHEST-1 VIEW HISTORY: SOB TECHNIQUE: Portable chest single view COMPARISON: 03/13/2019 FINDINGS: The endotracheal tube has been removed. There are infiltrates and atelectasis in the left lung base with a small left pleural effusion. Right lung is well expanded and clear. No cardiomegaly. No pulmonary edema. A nasogastric tube overlies the esophagus and stomach. IMPRESSION: Development of left basilar infiltrates and atelectasis Electronically signed by Ben Hess 03/15/2019 6:53 AM
[2019-03-15 07:08] LABS: LYMPHS 10 % (21-51); SEGS 84 % (42-75)
--- NOTE | 2019-03-15 10:15 | NEPHROLOGY PROGRESS NOTE ---
DATE: 03/15/2019 TIME SEEN: 0650. SUBJECTIVE: Mr. Reyna is a 68-year-old, white male. He is sitting up in bed. He is awake and alert. He is able to respond appropriately. Follows directions. He has complaints of abdominal discomfort. OBJECTIVE: His most recent vital signs, temperature 99.7 degrees, blood pressure 129/66, heart rate 97, respirations 18. He is currently on 40% cool aerosol. He has had 2293 in and 755 out with 300 mL to NG and 455 of Trejo catheter. Labs: Sodium 143, potassium 5.7, chloride is 104, CO2 24, BUN 66, creatinine 3, glucose 162, his anion gap is 15, calcium 8.5, phosphorus 5, albumin 2.6. White count 15.12, hemoglobin 10.1, hematocrit 29.5, platelet count 118,000. ABGs, pH 7.47, CO2 36, PO2 67, bicarb 26.8 on 40% cool aerosol, with a lactate of 3.7. Physical Examination: General: This is a 68-year-old, white male resting quietly in bed. He appears in no acute distress. His skin is warm and dry. HEENT: Normocephalic, atraumatic. Conjunctivae are pale. He has MARIPOSA. Mucous membranes are dry. Neck: Supple. Trachea midline. He has no evidence of JVD. Cardiovascular: Regular rate and rhythm. He has no significant murmur or gallop. Lungs: Clear to auscultation bilaterally. Equal excursion, on O2. Abdomen: Soft. Quiet bowel sounds. Dressing remains dry and intact. Genitourinary: Not inspected. Trejo catheter is in place with adequate urine output documented. Extremities: Have no edema. No clubbing or cyanosis. Neurological: Alert and oriented x3. ASSESSMENT AND PLAN: 1. Acute kidney injury. Again, this is multifactorial secondary to hypotensive episodes immediately post surgery with fluid volume deficit which had been improved. Urine electrolytes indicate that he is on the dry side. We will give him a 1 L of lactated Ringer's bolus and then continue lactated Ringer's at 50 mL an hour today, and re- evaluate labs in the morning. 2. Electrolytes and acid-base balance. Patient continues with hyperkalemia. We will hold this morning in regards with treatment and check a potassium at 1 p.m. and re- evaluate. 3. Acid-base balance. Patient's anion gap is slightly elevated. He continues to have improved with his metabolic acidosis. We will continue to monitor. 4. Anemia. This remains stable. Hemoglobin of 10.1 . 5. Postoperative day #2 for rupture and repair of abdominal aortic aneurysm, followed by Dr. Varela. I would like to thank you for allowing us to follow with this patient. Dictated by CLARK Balderas for Lamin Lunsford MD Face to face encounter, data reviewed, discussed with Tess Goldstein on 03/15/19. I agree with the above assessment and plan of care. cc: CLARK Balderas MD R. Tyler Harney, MD MTDD
[2019-03-15] MEDS: LEVAQUIN 500 MG/D5W 500 MG/100 ML IVPB IV SCH (11:02)
[2019-03-15] MEDS: LR 1,000 ML IV SCH (12:01)
--- NOTE | 2019-03-15 15:12 | GENERAL SURGERY PROGRESS NOTE ---
DATE: 03/15/2019 SUBJECTIVE: Hemodynamically stable overnight. Urine output is improving. We have been treating him for his hyperkalemia several times, and it is overall stable, improving on some checks. He is on Ventimask. His abdomen is soft. He has had some bowel dysfunction. NG tube output has been minimal. White count 15, hematocrit 29. ABG 7.47, 36, 67, 26. Lactate is 3.7, potassium is 5.7 and it has fluctuated down as low as 5 overnight. Creatinine is 3.0. ASSESSMENT AND PLAN: This is a 68-year-old gentleman status post ruptured abdominal aortic aneurysm repair. His x-ray and pulmonary status is improving. He does have some atelectasis. We will remove his NG tube, give him sips of clears today. Keep his Trejo catheter. His urine output is almost 30 an hour, which is improving. I suspect that he is establishing recovery of his acute kidney injury. Dr. Lunsford from Nephrology Service is following. Appreciate their help. We will continue current management. Overall, he is doing very well. On exam, his abdomen is soft, nondistended, and he has femoral and pedal pulses. cc: Hammad Varela MD
[2019-03-15] MEDS: PROTONIX IV SCH (18:37)
[2019-03-16] MEDS: MORPHINE IV PRN (02:06)
[2019-03-16] MEDS ORDERED: LR 250 ML IV SCH (04:45)
[2019-03-16] MEDS ORDERED: LR 250 ML IV ONE (04:51)
[2019-03-16 04:54] LABS: ALLEN TEST YES; BE 4.6 mmoll (-3.0-3.0); BLOOD TYPE ARTERIAL; HCO3-(ACT) 28.5 mmoll (20.0-26.0); METHB 1.2 % (0.0-1.5); O2(CT) 12.5 mL/dL (15.0-23.0); O2HB 94.7 % (95.0-99.0); PCO2(98.6) 37 mmHg (35-45); PO2(98.6) 81 mmHg (60-100); SAMPLE BLOOD; SAO2 97.8 % (95.0-100.0); THB 9.3 g/dL (11.5-17.4); pH(98.6) 7.49 (7.35-7.45)
[2019-03-16 04:56] LABS: MODALITY CANNULA
[2019-03-16] MEDS ORDERED: LR 500 ML IV ONE (05:12)
[2019-03-16] MEDS ORDERED: LANOXIN IV ONE (05:16)
[2019-03-16 07:15] LABS: BASO# 0.01 X1000 (0.0-0.2); BASO% 0.1 % (0.0-0.8); EOS# 0.01 X1000 (0.0-0.7); EOS% 0.1 % (0.0-10.0); HEMATOCRIT 26.3 % (42.0-52.0); HEMOGLOBIN 8.6 g/dL (14.0-18.0); IMM GRAN# 0.02 X1000 (0.0-0.04); IMM GRAN% 0.1 % (0.0-0.5); LYMPH# 1.07 X1000 (1.2-3.4); LYMPH% 7.9 % (20.5-51.1); MCH 28.9 PG (27-31); MCHC 32.7 g/dL (33-37); MCV 88.3 FL (81-99); MONO# 0.74 X1000 (0.11-0.59); MONO% 5.4 % (1.7-9.3); MPV 9.8 FL (7.4-10.4); NEUT# 11.74 X1000 (1.4-6.5); NEUT% 86.4 % (42.2-75.2); PLT 108 X1000 (130-400); RBC 2.98 XMIL (4.7-6.1); RDW 14.8 % (11.5-14.5); WBC 13.59 X1000 (4.8-10.8)
[2019-03-16] MEDS ORDERED: CARDIZEM IV ONE (07:18)
[2019-03-16] MEDS ORDERED: CARDIZEM 125 MG/D5W 125 MG/125 ML IVPB IV SCH (07:22)
[2019-03-16] MEDS ORDERED: D50W SYRINGE IV ONE (07:23)
[2019-03-16] MEDS ORDERED: HUMULIN R IV ONE (07:23)
[2019-03-16] MEDS ORDERED: CALCIUM GLUCONATE IV PUSH ONE (07:24)
[2019-03-16 07:37] LABS: ALBUMIN 2.3 g/dL (3.5-5.0); CALCIUM 8.2 mg/dL (8.8-10.2); CREATININE 2.4 mg/dL (0.7-1.2); PHOSPHORUS 4.4 mg/dL (2.7-4.5); POTASSIUM 5.3 mmol/L (3.5-5.1)
--- NOTE | 2019-03-16 07:51 | Diag Imaging Result Doc PS360 ---
EXAM: CHEST-1 VIEW 03/16/2019 HISTORY: SOB TECHNIQUE: AP portable at 0525 COMMENT: There is a pleural effusion on the left. There is some atelectasis versus pneumonia in the lingula and left lower lobe. The inspiration is slightly worse than on 03/15/2019 but otherwise there has been no significant change. IMPRESSION: Left pleural effusion and lingular and lower lobe pneumonia. Electronically signed by Fly Tabares 03/16/2019 7:49 AM
[2019-03-16 07:53] LABS: LYMPHS 7 % (21-51); MONO 4 % (1-9); SEGS 89 % (42-75)
[2019-03-16] MEDS: MAXIPIME 1 GM in NS 50 ML IV SCH ×2 (07:55→18:38)
[2019-03-16] MEDS ORDERED: CORDARONE IV ONE (08:04)
[2019-03-16] MEDS ORDERED: CORDARONE 360 MG/D5W 360 MG/200 ML IV.SOLN IV ONE (08:05)
[2019-03-16] MEDS ORDERED: CORDARONE 150 MG/D5W 150 MG/100 ML IV.SOLN IV ONE (08:10)
--- NOTE | 2019-03-16 08:15 | EKG Report ---
Test Performed on : 03/16/2019 03:15:18 AM Test Reason : ICU. NO EKG ORDER FOR MUSE Blood Pressure : / mmHG Vent. Rate : 172 BPM Atrial Rate : 018 BPM P-R Int : 000 ms QRS Dur : 082 ms QT Int : 246 ms P-R-T Axes : 000 056 220 degrees QTc Int : 416 ms Atrial fibrillation. with rapid ventricular response. ST & T wave abnormality, consider inferolateral ischemia Abnormal ECG When compared with ECG of 13-MAR-2019 14:33, (Unconfirmed) Atrial fibrillation. has replaced Sinus rhythm. Vent. rate has increased BY [address] now depressed in Inferior leads ST now depressed in Anterolateral leads T wave inversion now evident in Inferior leads T wave inversion now evident in Lateral leads Confirmed by Gigi SON, Onesimo Herring ([id number]) on 03/16/2019 6:39:02 PM
[2019-03-16 08:41] LABS: INR 1.24; PROTIME 16.6 Seconds (11.0-16.0)
[2019-03-16 08:45] LABS: ALB/GLOB RATIO 0.8; ALBUMIN 2.1 g/dL (3.5-5.0); DIRECT BILIRUBIN 0.2 mg/dL (0.00-0.20); TOTAL BILIRUBIN 0.53 mg/dL (0.20-1.00); TOTAL PROTEIN 4.9 g/dL (6.3-8.3)
[2019-03-16 08:55] LABS: D-DIMER 11.9 ug/mLFEU (0.0-0.52)
[2019-03-16 08:57] LABS: HEMOGLOBIN A1C 5.2 % (4.8-6.0)
[2019-03-16 08:59] LABS: FREE T4 0.99 ng/dL (0.93-1.70)
[2019-03-16 09:00] LABS: TSH 8.47 uIUmL (0.27-4.20)
[2019-03-16] MEDS: LR 1,000 ML IV SCH (09:09)
[2019-03-16 09:10] LABS: CK INDEX 0.7 (0.0-2.5); CK-MB 3.8 ng/mL (0.0-5.0)
[2019-03-16] MEDS: LEVAQUIN 500 MG/D5W 500 MG/100 ML IVPB IV SCH (10:24)
--- NOTE | 2019-03-16 10:31 | PROGRESS NOTE ---
DATE: 03/16/2019 SUBJECTIVE: This morning Mr. Reyna is seen in the ICU. We were consulted last night to help manage other medical comorbidities. Mr. Reyna has been admitted to the hospital since 03/13/2019. Today is day 3 of hospitalization. He underwent emergent intra-abdominal vascular surgery where an open repair of a ruptured abdominal aortic aneurysm was done with a Dacron graft by Dr. Varela and Dr. Brink on 03/13/2019. Postoperatively, he remained intubated for about 2 days, and got successfully extubated on the . Today is day 2 post extubation. He seems to be doing fairly okay. Now, since early this morning, patient has gone into atrial fibrillation RVR, and Cardiology has also been consulted. The patient is already being seen by Surgery, Pulmonary Medicine and Nephrology. This morning Mr. Reyna refers to be doing a lot better. He denies any new complaints. OBJECTIVE: Vital signs: Blood pressure is 104/48, pulse of 146 and is irregular, respirations 24, and temperature is 98.9 degrees. Patient is saturating 96% on 2 L. General: On exam, Mr. Reyna is a 68-year-old male. He is in bed. He does not seems to be in any distress. Mucosa is pink and moist. Anicteric. Acyanotic. Neck: Supple. No JVD. Chest: Good air entry bilaterally. No crepitations. No rhonchi. Cardiovascular: Irregularly irregular and is tachycardic. There were no murmurs. No rubs. No gallops. GI: Abdomen is soft. There is a fresh surgical wound on the abdominal wall which has sterile dressing over it. The dressing looks minimally stained with blood. Bowel sounds were present. Extremities: No pedal edema. Distal pulses are present but very weak. The femoral pulses are a little bit stronger, but even with that it felt slightly weak bilaterally. The patient has a distal plantar minimal purplish discoloration. LABORATORY DATA: WBC is 13.59, and hemoglobin 8.6, platelet count of 108,000. Fibrinogen is 640. Chemistry is also reviewed and is unremarkable. Chemistry has been reviewed. Creatinine is 2.4. Patient's I's and O's, urine output is 1025. The patient is currently positive balance of about 2440. IMAGING STUDIES: A chest x-ray this morning shows left pleural effusion and lingula and lower lobe pneumonia. CURRENT MEDICATIONS: Cefepime and Levaquin. ASSESSMENT: 1. Status post open repair of a ruptured abdominal aortic aneurysm. Today, is day 3. The patient seems to be doing fairly okay. Surgery is on board. 2. Acute hypoxemic respiratory failure. The patient was intubated, and was on mechanical ventilation for about a day or 2, and successfully extubated 2 days ago. Seems to be saturating well on nasal cannula. 3. Left lingular and lower lobe pneumonia associated with pleural effusion. The patient is on IV antibiotics. He seems to be saturating well. The white cell count is trending down so we are going to continue with the current antimicrobial coverage. 4. Acute kidney injury presumably multifactorial including prerenal and renal causes. The patient was hypotensive at some point, presumably because of blood loss. He has been fluid resuscitated. Creatinine seems to be trending down, and he is making adequate urine. Nephrology is on board. We will try to avoid any nephrotoxins. 5. Normocytic anemia secondary to blood loss from secondary to acute blood loss. Patient is status post 10 PRBC transfusion, 3 FFP, and 1 platelet. He seems to be hemodynamically stable at this point. We will continue monitoring. 6. New onset of atrial fibrillation and RVR. The patient has been started on Cardizem and Cardiology has been consulted. cc: Jesse Duran MD MTDD
--- NOTE | 2019-03-16 13:11 | NEPHROLOGY PROGRESS NOTE ---
DATE: 03/16/2019 SUBJECTIVE: Mr. Reyna is awake and alert. He is resting with the head of the bed elevated. Complains of abdominal discomfort. Otherwise, no chest pain or increased work of breathing. LABORATORY DATA: Sodium 141, potassium 5.3, chloride 104, CO2 of 30, BUN 76, creatinine 2.4, glucose 118, his anion gap is 7, calcium 8.2, phosphorus 4.4, albumin 2.3. White count 13.5, hemoglobin 8.6, hematocrit 26.3, with a platelet count of 103,000. ABGs: PH 7.49, CO2 of 37, PO2 of 81, bicarb 28.5 on 3 L, with a lactate of 1.8. His PT is 16.6, INR 1.24. Fibrinogen and D- dimer are currently pending. PHYSICAL EXAMINATION: Vital Signs: Temperature 98.2, blood pressure 104/56, heart rate is tachycardic in the 150s, respirations are 12. He is currently on 3 L nasal cannula. Last recorded saturation is 96%. He has had 3250 in, 1075 out to Trejo catheter. General: This is a 68-year-old white male, resting quietly in bed. He appears chronically ill. No active acute distress. Skin: Warm and dry. HEENT: Normocephalic, atraumatic. Mucous membranes are dry. Neck: Supple. Trachea midline. No evidence of JVD. Cardiovascular: Regular rate and rhythm. No significant murmur or gallop. Lungs: Clear to auscultation bilaterally. Equal excursion with diminished breath sounds. Genitourinary: Not inspected. Trejo catheter remains in place. The patient has put 1025 mL out, with an increase in his urinary output. Urine is clear today. Abdomen: It is tender to touch. Hypo bowel sounds. Dressing remains dry and intact. Extremities: No edema. No clubbing or cyanosis. Neurological: Alert and oriented x3. Integumentary: Dressing remains to right mid quadrant. Dry and intact. No rashes or lesions. ASSESSMENT AND PLAN: 1. Acute kidney injury, ATN. The patient's BUN is elevated slightly today, with a creatinine improvement down to 2.4 from 3 yesterday. Good urine output. No indications for intervention. We will continue to monitor. We will leave his lactated Ringer's at 50 mL an hour on throughout the day. 2. Electrolytes and acid-base balance. He has mild hyperkalemia. We will leave this. 3. Postoperative day number 3 for rupture and repair of abdominal aortic aneurysm, followed by Dr. Varela. 4. New-onset atrial fibrillation with rapid ventricular response. Cardiology has been consulted. I would like to thank you for allowing us to follow with this patient. Dictated by CLARK Balderas for Lamin Lunsford MD Face to face encounter, data reviewed, discussed with Tess Goldstein on 03/16/19. I agree with the above assessment and plan of care. cc: CLARK Balderas MD Raphael K. Quansah, MD [facility]
[2019-03-16] MEDS ORDERED: CORDARONE 540 MG in D5W 289.2 ML IV ONE (14:11)
--- NOTE | 2019-03-16 14:42 | CARDIOLOGY CONSULTATION ---
DATE: 03/16/2019 CHIEF COMPLAINT: On presentation was abdominal pain. HISTORY OF PRESENT ILLNESS: Mr. Reyna is a 68-year-old gentleman with a previous distant history of smoking but no recent medical issues. He does not regularly see a primary care physician. He has been dealing with several months of a bloating type discomfort in his abdomen that he thought was just gas. Earlier this week on Wednesday he was swimming at [employer] and had a more acute onset of abdominal pain as well as right-sided pain. He subsequently presented the ER and was found to be hypotensive. CT scan demonstrated a ruptured 13.6 cm aneurysm. He was taken to the operating room by Dr. Gibson and Dr. botello and had repair of this. Subsequently he has been managed in the ICU. We are consulted regarding an episode of atrial fibrillation that occurred early this morning. The patient was minimally symptomatic with that with only some palpitations. He currently is awake and alert. He has minimal complaints of abdominal pain. He has no chest pain. He has no cardiac history that he is aware of. PAST MEDICAL HISTORY: None but he does not follow with a regular physician. SOCIAL HISTORY: Distant history of smoking in his 30s but otherwise no other issues. FAMILY HISTORY: Hypertension. REVIEW OF SYSTEMS: A 10 system review of systems is negative except for those mentioned in HPI. PHYSICAL EXAMINATION: Patient is afebrile. His heart rate currently was in the 70s to 80s during my examination. His most recent blood pressure is 104/48.General: He is in no acute distress. HEENT: Oropharynx is dry. Normal dentition. Eye examination is pink conjunctivae, white sclerae. Neck: Examination shows no obvious thyromegaly or thyroid tenderness. Cardiovascular: He sounds to be in a regular rate and rhythm. He has no obvious murmurs. He has no S3. He has no lower extremity edema. Chest: Exam sounds clear bilaterally. He has no increased work of breathing. Abdomen: Soft. Bowel sounds were faint if at all. Mild diffuse tenderness. Skin: Warm and dry throughout. Neurological: He is moving all extremities well. He has no lateralizing deficits. Psychiatric: He is alert, oriented, pleasant. He has normal mood and affect. PERTINENT DATA: The patient had a chest x-ray today showing a left pleural effusion and a lingular and lower lobe pneumonia. He had an electrocardiogram this morning reviewed by me. This was done at 3:15, demonstrated what appeared to be rapid atrial fibrillation, rate of 172 beats per minute. He had mild diffuse ST depression. His lab data shows a white count of 13.6, hematocrit 26, platelet count 108,000. His hematocrit has dropped from 31 on the steadily to 26. His INR is 1.24. His sodium is 141, potassium 5.3. BUN 76, creatinine is 2.4. This appears to be trending down from a peak of 3 yesterday, was 1.2 on presentation. His AST and ALT are elevated. His albumin is 2.1. His troponin was 0.052. ASSESSMENT: Mr. Reyna is a 68-year-old gentleman with a recent repair of a ruptured abdominal aneurysm. He has rapid atrial fibrillation which currently has converted over to sinus. PLAN: We will check an echo as well as a TSH if this is not already been done. Currently I do not have any further recommendations other than continuation of the amiodarone. cc: MD Jesse Ford MD
[2019-03-16] MEDS: PROTONIX IV SCH (17:38)
--- NOTE | 2019-03-16 18:18 | ECHO REPORT ---
ORDER DATE: 03/16/2019 INTERPRETING PHYSICIAN: Luc Ferrell MD INDICATION: A 68-year-old male with atrial fibrillation. Patient with rupture of abdominal aortic aneurysm, status post repair, postoperative day #3. M-MODE MEASUREMENTS: Left ventricle end diastole: 4.5 cm. Left ventricle end systole: 2.5 cm. Posterior wall: 1.1 cm. Interventricular septum: 1.1 cm. Left atrium: 2.3 cm. Aortic diameter: 4.7 cm. SUMMARY OF 2-DIMENSIONAL IMAGIN. The left ventricular function is excellent. Ejection fraction is 65%. There is no wall motion abnormality noted. 2. The aortic valve looks normal. There is dilatation of the ascending aorta. Color flow mapping is unremarkable. 3. The left atrium appears to be normal. 4. The right ventricle appears to be normal. 5. There is a pleural effusion on the left side. There is no pericardial effusion of any significance. 6. The mitral valve looks normal. Color flow mapping unremarkable. 7. Pulsed wave Doppler of mitral inflow shows relatively normal E/A ratio. 8. Tissue Doppler of septal and lateral mitral annulus averages 10 cm. There is no diastolic dysfunction. 9. The patient is currently in sinus rhythm. 10.Tricuspid valve shows a mild degree of regurgitation. The inferior vena cava could not be measured. 11. The pulmonary pressure is somewhere in the range of 32 to 37 mmHg. 12.The pulmonic valve is unremarkable. 13. There is no mass and no thrombus. Clinical correlation is recommended. cc: MD Emigdio Looney MD Raphael K. Quansah, MD
[2019-03-16] MEDS: HEPARIN SUBQ SCH (20:54)
--- NOTE | 2019-03-16 23:07 | GENERAL SURGERY PROGRESS NOTE ---
DATE: 03/16/2019 SUBJECTIVE: Overall doing very well. He did have some atrial fibrillation with RVR that was converted with amiodarone infusion this morning. Cardiology has been consulted. Urine output continues to improve. He is tolerating clear liquids and having bowel function. No lower extremity pain. Mostly complaining about having to be in the bed. OBJECTIVE: On exam, he is alert. He has palpable femoral pulses. His feet are well perfused. Incision has some drainage on the dressing, but this is overall intact. No cellulitis. Abdomen is soft. I have reviewed his labs. White count is down to 13, hematocrit is 26. ABG shows a very good gas exchange, CO2 of 37 with a pO2 of 81. Lactate continues to normalize at 1.80. Creatinine is down to 2.4. Potassium is 5.3. ASSESSMENT AND PLAN: A 68-year-old gentleman status post repair of ruptured aneurysm. Acute kidney injury is resolving. He has had return of bowel function. We will keep his Trejo for now. He is tolerating clear liquids. We will work on getting him out of bed. I have stressed the importance of pulmonary toileting. His family is here with him at the bedside. I appreciate the delivery driver/customer service's help. cc: MD Jesse Pizarro MD
--- NOTE | 2019-03-17 01:15 | CONSULTATION ---
DATE OF CONSULTATION: 03/16/2019 ATTENDING: Dr. Varela. CONSULTING PHYSICIAN: Dr. Chou. REASON FOR CONSULTATION: Medical management during hospitalization, and also new onset of atrial fibrillation with rapid ventricular response. HISTORY OF PRESENTING ILLNESS: A 68-year-old male, currently under care of surgery and is status post ruptured aortic abdominal aortic aneurysm repair. Hospitalist are consulted for medical management, and also for new onset of atrial fibrillation with rapid ventricular response. At time of my evaluation, the patient is relatively stable. He is denying any headache, fever, chills, chest pain, or shortness of breath. The patient was monitored on telemetry and had a 12- lead which did show atrial fibrillation with rapid ventricular response. PAST MEDICAL HISTORY: None. PAST SURGICAL HISTORY: Just the recent AAA repair. ALLERGIES: No known drug allergies. CURRENT MEDICATIONS: Include lactated Ringer's, Zofran, Protonix. SOCIAL HISTORY: He is a former smoker. No history of alcohol or illicit drug use. FAMILY HISTORY: No history of coronary disease. REVIEW OF SYSTEMS: Fourteen-point review of systems is as in HPI. Other systems negative. PHYSICAL EXAMINATION: General: Cooperative, friendly male. He is resting more comfortably now. Vital Signs: Temperature 98.2 degrees, pulse 163, respirations 20, blood pressure 107/68. HEENT: Atraumatic, normocephalic. Extraocular movements intact. PERRLA. Neck: No masses. Chest: Clear to auscultation. Cardiovascular: Irregularly irregular. Abdomen: Soft. Positive bowel sounds. Extremities: No edema. Neurologic: He is awake, alert, oriented x3. Genitourinary: No bladder distention. Skin: Warm. LABORATORIES AND STUDIES: Sodium 143, potassium 5.7, chloride 104, CO2 of 24, BUN is 66, creatinine is 3.0. Glucose is 162. WBCs 15.12, hemoglobin 10.1, hematocrit 29.5, platelets 118,000. ASSESSMENT: A 68-year-old male currently under the care of General surgery and is status post ruptured abdominal aortic aneurysm repair. Hospitalist is consulted for medical management, and also management of new onset of atrial fibrillation. 1. Status post ruptured abdominal aortic aneurysm. We will defer care to General Surgery. 2. Atrial fibrillation with rapid ventricular response. 3. Mild hyperkalemia. 4. Acute kidney injury. PLAN: 1. The patient is already admitted to ICU. 2. We will continue to monitor patient on telemetry. Check labs. The patient is mildly hypotensive. Will give a small fluid bolus. 3. May need to start Cardizem. 4. Consult Cardiology. 5. Continue to monitor his electrolytes. 6. Monitor his renal function. 7. The patient is already on deep venous thrombosis prophylaxis, sequential compression devises. 8. We will continue to follow with you. Thank you for allowing me to participate in the care of this patient. cc: MD Jesse Cloud MD
[2019-03-17] MEDS: HEPARIN SUBQ SCH ×4 (04:06→20:52)
[2019-03-17 05:38] LABS: BASO# 0.01 X1000 (0.0-0.2); BASO% 0.1 % (0.0-0.8); EOS# 0.02 X1000 (0.0-0.7); EOS% 0.1 % (0.0-10.0); HEMATOCRIT 23.6 % (42.0-52.0); HEMOGLOBIN 7.6 g/dL (14.0-18.0); IMM GRAN# 0.05 X1000 (0.0-0.04); IMM GRAN% 0.4 % (0.0-0.5); LYMPH# 0.94 X1000 (1.2-3.4); LYMPH% 6.7 % (20.5-51.1); MCH 28.5 PG (27-31); MCHC 32.2 g/dL (33-37); MCV 88.4 FL (81-99); MONO# 1.09 X1000 (0.11-0.59); MONO% 7.8 % (1.7-9.3); MPV 10.8 FL (7.4-10.4); NEUT# 11.84 X1000 (1.4-6.5); NEUT% 84.9 % (42.2-75.2); PLT 102 X1000 (130-400); RBC 2.67 XMIL (4.7-6.1); RDW 14.8 % (11.5-14.5); WBC 13.95 X1000 (4.8-10.8)
[2019-03-17 06:15] LABS: ALB/GLOB RATIO 0.8; ALBUMIN 2.1 g/dL (3.5-5.0); CALCIUM 7.8 mg/dL (8.8-10.2); CREATININE 1.7 mg/dL (0.7-1.2); PHOSPHORUS 3.9 mg/dL (2.7-4.5); POTASSIUM 4.6 mmol/L (3.5-5.1); TOTAL BILIRUBIN 0.69 mg/dL (0.20-1.00); TOTAL PROTEIN 4.9 g/dL (6.3-8.3)
[2019-03-17] MEDS: MAXIPIME 1 GM in NS 50 ML IV SCH ×3 (06:21→19:52)
--- NOTE | 2019-03-17 07:14 | Diag Imaging Result Doc PS360 ---
EXAM: CHEST-1 VIEW 03/17/2019 HISTORY: SOB TECHNIQUE: AP portable at 0531 COMMENT: There is pleural fluid and alveolar opacification over the left base. There is slight hazy opacity over the right base. Compared to 03/16/2019 the opacification of the right lower lobe has improved slightly. IMPRESSION: Left pleural effusion and atelectasis versus pneumonia in the left lower lobe superimposed on mild pulmonary edema. Electronically signed by Fly Tabares 03/17/2019 7:12 AM
[2019-03-17] MEDS: LR 1,000 ML IV SCH (07:17)
[2019-03-17] MEDS ORDERED: CORDARONE PO SCH (09:00)
[2019-03-17] MEDS: LEVAQUIN 500 MG/D5W 500 MG/100 ML IVPB IV SCH (09:08)
--- NOTE | 2019-03-17 17:16 | NEPHROLOGY PROGRESS NOTE ---
DATE: 03/17/2019 SUBJECTIVE: He is awake, alert. Denies pain, shortness of breath, etc. OBJECTIVE: Vital Signs: Blood pressure 134/57, heart rate 79, respirations 24, afebrile. Intake 3.9 L, output 2.4 L. General: No acute distress. Skin: Warm and dry. Conjunctivae are pink. Neck: Neck veins are not distended. Heart: Regular. No gallops. Lungs: Equal. No crackles. Abdomen: Soft, minimally tender. Bowel sounds are present. Extremities: 2+ edema, mainly in the upper extremities. IMPRESSION AND PLAN: Acute kidney injury. Urine output is improved. Creatinine is falling. Electrolytes and acid-base are in target. No changes. cc: MD Jesse Pennington MD
--- NOTE | 2019-03-17 17:28 | PULMONOLOGY PROGRESS NOTE ---
DATE: 03/17/2019 SUBJECTIVE: The patient is awake, alert, and conversant. He reports he is tolerating p.o. intake. He denies shortness of breath. OBJECTIVE: Vital Signs: The patient has been afebrile for the last 24 hours. Blood pressure 132/64, heart rate 80, respiratory rate 25, oxygen saturation 96%. HEENT: Pupils are equal. He has cataract or prior injury to the right eye. Oropharynx is clear. Neck: Supple. Chest: Reveals decreased breath sounds at the left base. Cardiac: S1, S2. Abdomen: Mildly distended with positive bowel sounds. Extremities: Warm to the touch. IMAGING: Chest x-ray reveals left-sided effusion with atelectasis or infiltrate at the left base. LABORATORY DATA: White blood count 13.95, hemoglobin 7.6, platelet count 102,000. Sodium 142, potassium 4.6, chloride 104, bicarbonate 28, BUN 62, creatinine 1.7. IMPRESSION: A 68-year-old with history of tobacco use, who presented with a large ruptured aneurysm requiring emergent surgical repair. The patient has acute hypoxemic respiratory failure, pleural effusions, and resolving acute renal failure. RECOMMENDATIONS: 1. Mobilize the patient out of the bed. 2. Continue bronchial hygiene. 3. Continue to follow left-sided pleural effusion which should resolve, but if he becomes clinically toxic, thoracentesis will be performed. 4. Anticipate transfer to the floor soon. cc: MD Jesse gM MD
[2019-03-17] MEDS: SODIUM CHLORIDE 0.9% INJ SCH (18:27)
[2019-03-17] MEDS: PROTONIX IV SCH (18:27)
--- NOTE | 2019-03-17 18:27 | PROGRESS NOTE ---
DATE: 03/17/2019 SUBJECTIVE: This morning, Mr. Reyna refers to be doing fairly okay. Denied any complaints. OBJECTIVE: Vital Signs: Blood pressure is 136/65, pulse of 84, respirations 19, temperature 99.5 degrees, and patient was saturating 96% on 2 L. General: Mr. Reyna is a 68-year-old gentleman who was in bed. There are 2 female family members at the bedside at the time of the encounter. He was not in any distress. HEENT: Mucosa is pink and moist. Anicteric. Acyanotic. Neck: Supple. Chest: Good air entry bilaterally. No crepitations. No rhonchi. Cardiovascular: Regular rate and rhythm. No murmurs, no rubs, no gallops. GI: Abdomen is soft. There is still a sterile dressing over the surgical wound on the anterior abdominal wall. Extremities: No pedal edema. Distal pulses are present. EXECUTIVE SOUS CHEF: Patient is awake, alert, and oriented. LABORATORY DATA: WBC is 13.95, hemoglobin 7.6, platelet count of 102,000. Chemistries also reviewed. Creatinine is down to 1.7. Patient's inputs and outputs: Urine output was 2400 over 24 hours. IMAGING STUDIES: A chest x-ray this morning did show left pleural effusion, atelectasis versus pneumonia in the left lower lobe superimposed on mild pulmonary edema. An echocardiogram done yesterday did show an ejection fraction of 65%. There is no wall motion abnormality noted. ASSESSMENT: 1. Status post open repair of ruptured abdominal aortic aneurysm. Today is day 4 postop. Patient is doing well. 2. Acute hypoxemic respiratory failure after abdominal surgery, resolved. The patient is day 3 post extubation. He is tolerating nasal cannula. 3. Left lingular and lower lobe pneumonia, associated with pleural effusion. The patient is on intravenous cefepime, Levaquin. 4. Acute kidney injury, likely due to prerenal etiologies. Creatinine is on downward trend. 5. Normocytic anemia, secondary to acute blood loss. Patient is status post 10 packed red blood cell transfusions, 3 fresh frozen plasma, 1 platelet. Hemoglobin and hematocrit still kind of trending slightly down. We are going to keep eye on that. Patient does not show any obvious sign of bleeding. 6. New onset of atrial fibrillation, rapid ventricular response. Cardiology was consulted. Patient is currently in sinus. He is on amiodarone and this has been switched to oral formulation. 7. Abnormal TSH. I think this is indicative of subclinical hypothyroidism or it is thyroid endocrinopathy associated with critical care illness. The patient will need to repeat TSH, free T4 after the current critical care illness. In general, I feel Mr. Reyna seems to be doing well. Heart rate is now better controlled. He is currently on oral amiodarone. Creatinine has also trended down. We are going to continue following. cc: Jesse Duran MD
[2019-03-17] MEDS: MORPHINE IV PRN (18:28)
--- NOTE | 2019-03-17 21:41 | CARDIOLOGY PROGRESS NOTE ---
DATE: 03/17/2019 SUBJECTIVE: Mr. Reyna reports he is doing better. They have advanced his diet. His abdominal pain has improved. OBJECTIVE/PHYSICAL EXAMINATION: Vital Signs: He is afebrile. Heart rate 84, blood pressure 136/65. Telemetry currently shows sinus. General: No acute distress. Cardiovascular: He is in a regular rate and rhythm with no murmurs, no S3. No lower extremity edema. Chest: Exam is clear bilaterally. He has no increased work of breathing. Abdomen: Soft. Minimal tenderness to palpation. PERTINENT DATA: White count is 13.9, hematocrit 23 (which is down from 31 on the ). It has steadily declined. His platelet count is 102. His sodium is 142, potassium 4.6, BUN 62, creatinine is 1.7, which has improved gradually. His albumin level is 2.1. ASSESSMENT: Mr. Reyna is a 68-year-old gentleman status post repair of a ruptured aneurysm. He had an episode of atrial fibrillation during this hospitalization. PLAN: I would continue him on oral amiodarone through the course of the hospitalization. When he goes home, he can actually discontinue the medication. I will also initiate a low dose of beta blockade starting today. His TSH is elevated, but free T4 was normal. His echocardiogram yesterday demonstrated a normal ejection fraction. Presently, he appears to be a CHADS-VASc 1 only for age, so he could possibly go home on aspirin. cc: MD Jesse Ford MD
--- NOTE | 2019-03-17 21:50 | GENERAL SURGERY PROGRESS NOTE ---
DATE: 03/17/2019 SUBJECTIVE: He is doing well. No more RVR. He has been switched to p.o. amiodarone. No fevers. No tachycardia. OBJECTIVE: His feet are well perfused. Abdomen is soft, mildly distended. White count is 13, hematocrit is 23. Creatinine is down to 1.7. ASSESSMENT/PLAN: A 68-year-old gentleman status post repair of ruptured abdominal aortic aneurysm. He is doing well. I reviewed his x-rays. There is a left effusion, atelectasis, possible pneumonia, some pulmonary edema. Overall, he is clinically doing surprisingly well. It would be reasonable to transfer him to the step-down unit. I have discussed this. Otherwise, we need to work on getting him out of bed and ambulating, and will work on that. He is on antibiotics for possible pneumonia and prophylactic heparin. cc: MD Jesse Pizarro MD
[2019-03-18] MEDS: LR 1,000 ML IV SCH ×2 (05:39→05:40)
[2019-03-18] MEDS: HEPARIN SUBQ SCH ×3 (05:40→20:25)
[2019-03-18 05:58] LABS: BASO# 0.01 X1000 (0.0-0.2); BASO% 0.1 % (0.0-0.8); HEMATOCRIT 21.3 % (42.0-52.0); HEMOGLOBIN 6.7 g/dL (14.0-18.0); IMM GRAN# 0.05 X1000 (0.0-0.04); IMM GRAN% 0.5 % (0.0-0.5); LYMPH# 0.92 X1000 (1.2-3.4); LYMPH% 9.1 % (20.5-51.1); MCH 28.4 PG (27-31); MCHC 31.5 g/dL (33-37); MCV 90.3 FL (81-99); MONO# 1.01 X1000 (0.11-0.59); MPV 10.3 FL (7.4-10.4); NEUT# 8.06 X1000 (1.4-6.5); NEUT% 79.3 % (42.2-75.2); PLT 113 X1000 (130-400); RBC 2.36 XMIL (4.7-6.1); RDW 14.6 % (11.5-14.5); WBC 10.15 X1000 (4.8-10.8)
[2019-03-18 06:30] LABS: AGAP 10; ALBUMIN 2.2 g/dL (3.5-5.0); BUN 41 mg/dL (8-22); CALCIUM 7.9 mg/dL (8.8-10.2); CHLORIDE 105 mmol/L (98-107); COSMO 291; CREATININE 1.2 mg/dL (0.7-1.2); ESTIMATED GFR > 60; GLUCOSE 100 mg/dL (70-104); PHOSPHORUS 2.9 mg/dL (2.7-4.5); SODIUM 141 mmol/L (136-145); TCO2 26 mmol/L (25-35)
--- NOTE | 2019-03-18 07:38 | Diag Imaging Result Doc PS360 ---
CHEST-1 VIEW - 03/18/2019 INDICATION: SOB COMPARISON: 03/17/2019 FINDINGS: No change in the opacification and/or effusion at the left lower lobe. Heart size and pulmonary vascularity is normal. The right lung appears clear. IMPRESSION: No change from prior. Electronically signed by Lavelle Saavedra 03/18/2019 7:35 AM
[2019-03-18] MEDS: MAXIPIME 1 GM in NS 50 ML IV SCH ×2 (07:43→20:25)
[2019-03-18] MEDS: CORDARONE PO SCH (09:16)
[2019-03-18] MEDS: TOPROL XL PO SCH (09:16)
[2019-03-18] MEDS: LEVAQUIN 500 MG/D5W 500 MG/100 ML IVPB IV SCH (09:16)
[2019-03-18] MEDS ORDERED: NS 500 ML IV SCH (10:45)
--- NOTE | 2019-03-18 16:35 | PROGRESS NOTE ---
DATE: 03/18/2019 SUBJECTIVE: Today, Mr. Reyna refers to be doing a lot better. Denies any complaints. Per the nursing staff, he has been having a lot of bowel movements which seems to be watery. OBJECTIVE: Vital Signs: Blood pressure is 132/57, pulse of 82, respirations 18, and temperature is 99.2 degrees. The patient was saturating 97% on room air. General: In general, Mr. Reyna is a 68-year-old male. He was in bed. He did not seem to be in any cardiopulmonary distress. HEENT: Mucosa is pink and moist. Anicteric. Acyanotic. Neck: Supple. Chest: Good air entry bilaterally. There was no crepitations. No rhonchi. Cardiovascular: Regular rate and rhythm. Abdomen: Soft. The abdominal surgical wound is affronted with clips. It looks clean. Extremities: No pedal edema. Distal pulses present. The left upper extremity is remarkably more swollen than the right. GRADUATE FELLOW: Patient is awake, alert, and follows commands. LABORATORY DATA: WBC is down to 10.15, hemoglobin is 6.7, and platelet count of 113,000. Chemistry is also reviewed. Creatinine is normalized at 1.2 from 3.0. DIAGNOSTIC STUDIES: A chest x-ray this morning shows no change in opacification and/or effusion at the left lower lobe. A sputum culture shows a Branhamella catarrhalis. CURRENT MEDICATIONS: All have been reviewed. 1. He is on amiodarone 40 mg daily. 2. Cefepime 1 g b.i.d. Today is day 2 on that. 3. Levaquin 500 daily. Today is day 3. 4. Metoprolol 25 mg daily. 5. Pantoprazole 40 mg daily. 6. Protonix. ASSESSMENT: 1. Status post open repair of ruptured abdominal aortic aneurysm. Today, is day 5 postop. The patient seems to be doing fairly okay. Surgery is on board. 2. Acute hypoxemic respiratory failure after abdominal surgery. Patient is day 4 post extubation, and saturating well on just nasal cannula. 3. Left lingular and lower lobe pneumonia associated with pleural effusion. Sputum culture had shown Branhamella catarrhalis. Patient is currently on cefepime and Levaquin. Today is day 2 and 3 respectively. 4. Acute kidney injury secondary to volume depletion improved with adequate hydration. 5. Normocytic anemia secondary to acute blood loss. Patient is status post 10 PRBC transfusion, 3 FFP, and 1 platelet. Hemoglobin this morning is down to 6.7 so we are going to transfuse him 2 more units. We will also sample the stool to make sure he is not actively bleeding in his stool. 6. Diarrhea. This is presumably side effects of the current IV antibiotics. We will however want to rule out any possibility of C diff. We will send that for determination to rule out infectious etiology. 7. New onset of atrial fibrillation with rapid ventricular response. The patient is currently in sinus rhythm. He is on amiodarone and metoprolol. 8. Abnormal TSH on admission. It will need to be repeated at a later date. 9. Left upper extremity swelling. The patient did have an IV access on that side. This appears to be fluid infiltration, but I think it is reasonable to do a Doppler ultrasound to rule out any underlying DVT. In general, I think Mr. Reyna is clinically stable. Hemoglobin and hematocrit has dropped so we are going to transfuse him 2 PRBC's. We are also getting a left upper extremity Doppler to rule out a DVT. His creatinine has normalized, and so we will discontinue the IV fluids which could also be contributing to dilutional anemia. In terms of the diarrhea,, we will do infectious workup on that and go from there. cc: Jesse Duran MD [facility]
--- NOTE | 2019-03-18 19:42 | PULMONOLOGY PROGRESS NOTE ---
DATE: 03/18/2019 SUBJECTIVE: The patient is awake, alert, and conversant. He has not yet been mobilized out of the bed. OBJECTIVE: Vital Signs: The patient has been afebrile for the last 24 hours. Blood pressure 115/60, heart rate 79, respiratory rate 18, oxygen saturation 98% on 2 L per nasal cannula. HEENT: Pupils are equal and reactive. Oropharynx appears clear. Neck: Supple. Chest: Reveals decreased breath sounds left base. Cardiac Exam: S1-S2. Abdomen: Soft. Extremities: Reveal 1+ edema left upper extremity. LABORATORIES: Chest x-ray reveals effusion at the left base. Sputum cultures reveal Branhamella catarrhalis. This species is beta lactamase negative and sensitive to penicillin. White blood count 10.15, hemoglobin 6.7, platelet count 113,000. IMPRESSION: A 68-year-old with history of tobacco use, who presented with a large ruptured aneurysm. The patient has: 1. Acute hypoxemic respiratory failure. 2. Pleural effusions. 3. Acute bronchitis. 4. Blood loss anemia. RECOMMENDATIONS: 1. Continue to mobilize patient. 2. Continue bronchial hygiene. 3. Continue antibiotics. 4. Wean oxygen as tolerated. cc: MD Jesse Mg MD
[2019-03-18] MEDS: PROTONIX IV SCH (20:32)
--- NOTE | 2019-03-18 22:25 | GENERAL SURGERY PROGRESS NOTE ---
DATE: 03/18/2019 He is now 5 days after is a ruptured aneurysm repair. He has taken liquids. He is tolerating them. He has pedal pulses. His laboratory today revealed of hemoglobin down to 6.7, hematocrit 21, white count down to 10,000. BUN is down to 41, creatinine down 1.2, so his perfusion is better. He will need a transfusion today, which has already been ordered. I think he is progressing remarkably well. It is possible we can get his Trejo out tomorrow and may be even advance his diet. cc: MD Jesse Colon MD
[2019-03-19] MEDS: HEPARIN SUBQ SCH ×2 (04:27→18:09)
[2019-03-19 05:55] LABS: BASO# 0.01 X1000 (0.0-0.2); BASO% 0.1 % (0.0-0.8); EOS# 0.15 X1000 (0.0-0.7); EOS% 1.3 % (0.0-10.0); HEMATOCRIT 24.6 % (42.0-52.0); IMM GRAN# 0.06 X1000 (0.0-0.04); IMM GRAN% 0.5 % (0.0-0.5); LYMPH# 0.94 X1000 (1.2-3.4); MCH 28.2 PG (27-31); MCHC 32.5 g/dL (33-37); MCV 86.6 FL (81-99); MONO# 1.26 X1000 (0.11-0.59); MONO% 10.8 % (1.7-9.3); MPV 10.4 FL (7.4-10.4); NEUT% 79.3 % (42.2-75.2); PLT 127 X1000 (130-400); RBC 2.84 XMIL (4.7-6.1); RDW 15.8 % (11.5-14.5); WBC 11.72 X1000 (4.8-10.8)
[2019-03-19 06:26] LABS: AGAP 8; ALBUMIN 2.1 g/dL (3.5-5.0); BUN 30 mg/dL (8-22); CALCIUM 7.6 mg/dL (8.8-10.2); CHLORIDE 104 mmol/L (98-107); COSMO 283; ESTIMATED GFR > 60; GLUCOSE 114 mg/dL (70-104); PHOSPHORUS 2.5 mg/dL (2.7-4.5); POTASSIUM 3.5 mmol/L (3.5-5.1); SODIUM 138 mmol/L (136-145); TCO2 26 mmol/L (25-35)
[2019-03-19 06:36] LABS: EOS 1 % (1-10); LYMPHS 8 % (21-51); MONO 9 % (1-9); SEGS 82 % (42-75)
--- NOTE | 2019-03-19 07:29 | Diag Imaging Result Doc PS360 ---
CHEST-1 VIEW - 03/19/2019 INDICATION: SOB COMPARISON: 03/18/2016 FINDINGS: Stable layering hazy opacity throughout the left lung is probably mostly effusion. The right lung remains clear. Heart size and pulmonary vascularity remain normal. IMPRESSION: No change from prior. Electronically signed by Lavelle Saavedra 03/19/2019 7:26 AM
[2019-03-19] MEDS: MORPHINE IV PRN ×2 (08:27→18:08)
[2019-03-19] MEDS: MAXIPIME 1 GM in NS 50 ML IV SCH ×2 (08:28→21:53)
[2019-03-19] MEDS: TOPROL XL PO SCH (08:28)
[2019-03-19] MEDS: CORDARONE PO SCH (08:28)
[2019-03-19] MEDS: LEVAQUIN 500 MG/D5W 500 MG/100 ML IVPB IV SCH (09:15)
[2019-03-19] MEDS ORDERED: LASIX IV ONE (11:04)
--- NOTE | 2019-03-19 14:41 | PULMONOLOGY PROGRESS NOTE ---
DATE: 03/19/2019 SUBJECTIVE: The patient is arousable. He appears to be comfortable. He is on 2 L per nasal cannula. He reports he has not yet got out of bed. OBJECTIVE: Vital Signs: The patient has been afebrile for the last 24 hours. BP 110/57, heart rate 79, respiratory rate 18, oxygen saturation 97%. HEENT: Pupils are equal and reactive. Oropharynx appears clear. Neck: Supple. Chest: Good air entry on the right, with decreased breath sounds on the left. Cardiac: Normal S1, normal S2. Abdomen: Soft with positive bowel sounds. Extremities: Without edema. IMAGING AND LABORATORY DATA: Chest x-ray reveals left-sided pleural effusion, which is unchanged. Sodium 138, potassium 3.5, chloride 104, bicarbonate 26, BUN 30, creatinine 1.0. White blood count 11.7, hemoglobin 8.0, platelet count 127,000. IMPRESSION: A 68-year-old with history of tobacco use, status post repair of a ruptured abdominal aneurysm. The patient has: 1. Acute hypoxemic respiratory failure. 2. Pleural effusion. 3. Acute bronchitis with sputum culture revealing Branhamella catarrhalis. 4. Blood loss anemia. RECOMMENDATIONS: 1. I spoke with the nursing staff. The patient needs to be mobilized. He, at a minimum, needs to sit on the side of the bed, and should be getting out of bed and in the chair by now. 2. Continue bronchial hygiene. 3. Continue antibiotics. 4. Single dose of Lasix. 5. Wean oxygen as tolerated. cc: MD Jesse Mg MD
--- NOTE | 2019-03-19 15:10 | PROGRESS NOTE ---
DATE: 03/19/2019 Today Mr. Reyna refers to be doing a little better, some mild discomfort in the abdomen but otherwise he feels okay.Vitals: Blood pressure is 110/57, pulse of 79, respiration is 18, temperature 98 degrees. General: Mr. Reyna 71-year-old male he is in bed no distress. Mucosa is pink and moist. Anicteric, acyanotic. Neck: Supple. Chest: Good air entry bilateral, there is no crepitations, no rhonchi. Cardiovascular: Regular rate and rhythm. Abdomen: Soft, minimally distended. Bowel sounds present. The fresh surgical wound is affronted with clips it looks clean. Extremities: No pedal edema. Left lower extremity is still a little swollen more than the right. TESTING COORDINATOR: Patient is awake. He is legally blind. LABORATORY DATA: WBC is 11.72, hemoglobin is 8.0, platelet count of 127,000. Chemistry is reviewed, creatinine is down to 1.0. ASSESSMENT: 1. Status post open repair of ruptured abdominal aneurysm. Today is day 6 postop, surgery is on board, patient seems to be doing well. 2. Acute hypoxemic respiratory failure after abdominal surgery. Patient is day 5 post extubation, saturating well on nasal cannula. 3. Left lingular and lower lobe pneumonia associated with pleural effusion. Patient is on intravenous cefepime and Levaquin today is day 3 and 4 respectively. 4. Acute kidney injury secondary to volume depletion improved with adequate hydration. 5. Normocytic anemia secondary to acute blood loss during surgery, patient on was recently transfused, hemoglobin and hematocrit improved. His occult blood testing is also positive which is concerning for gastrointestinal bleed. We are going to follow this up. If it continues to drop will get GI. 6. Diarrhea improved. Clostridium difficile is negative, we think medication side effects. Will also get the patient lactobacillus. 7. New onset of atrial fibrillation with rapid ventricular response currently rate and rhythm controlled. Patient is on amiodarone and metoprolol. 8. Left upper extremity swelling. Doppler ultrasound was negative for deep vein thrombosis. In general Mr. Reyna is fairly stable, hemoglobin and hematocrit is improved however patient occult blood test was positive so we have discontinued the heparin for DVT prophylaxis and use a pneumatic compression. We also going to be continue to tight follow up on his hemoglobin. If it continues to drop again will recommend GI consult for evaluation. cc: Jesse Duran MD
[2019-03-19] MEDS: FLOMAX PO SCH (17:24)
--- NOTE | 2019-03-19 17:30 | GENERAL SURGERY PROGRESS NOTE ---
DATE: 03/19/2019 Mr. Reyna is afebrile, heart rate 60, blood pressure 110/57. He ate some 75% of his meals today. Urine output has been adequate. White count 11,000, hemoglobin 8, hematocrit 24.6. BUN 30, creatinine 1.0. He did have a bowel movement today. The plan is to take his Trejo out, will put him on Flomax because he says he does get up 3 times at night to pee. Will increase his activity. cc: MD Jesse Colon MD
[2019-03-19] MEDS: PROTONIX IV SCH (23:02)
[2019-03-20] MEDS: MORPHINE IV PRN ×2 (01:39→20:24)
[2019-03-20 05:33] LABS: BASO# 0.03 X1000 (0.0-0.2); BASO% 0.2 % (0.0-0.8); EOS# 0.25 X1000 (0.0-0.7); EOS% 1.4 % (0.0-10.0); HEMATOCRIT 25.9 % (42.0-52.0); HEMOGLOBIN 8.5 g/dL (14.0-18.0); IMM GRAN# 0.12 X1000 (0.0-0.04); IMM GRAN% 0.7 % (0.0-0.5); LYMPH# 1.14 X1000 (1.2-3.4); LYMPH% 6.2 % (20.5-51.1); MCH 28.2 PG (27-31); MCHC 32.8 g/dL (33-37); MONO# 1.16 X1000 (0.11-0.59); MONO% 6.3 % (1.7-9.3); MPV 9.8 FL (7.4-10.4); NEUT# 15.63 X1000 (1.4-6.5); NEUT% 85.2 % (42.2-75.2); PLT 139 X1000 (130-400); RBC 3.01 XMIL (4.7-6.1); RDW 15.3 % (11.5-14.5); WBC 18.33 X1000 (4.8-10.8)
[2019-03-20 06:01] LABS: AGAP 4; BUN 26 mg/dL (8-22); CALCIUM 7.6 mg/dL (8.8-10.2); CHLORIDE 103 mmol/L (98-107); COSMO 280; CREATININE 0.9 mg/dL (0.7-1.2); ESTIMATED GFR > 60; GLUCOSE 121 mg/dL (70-104); POTASSIUM 3.3 mmol/L (3.5-5.1); SODIUM 137 mmol/L (136-145); TCO2 30 mmol/L (25-35)
[2019-03-20 06:18] LABS: LYMPHS 5 % (21-51); MONO 3 % (1-9); SEGS 92 % (42-75)
--- NOTE | 2019-03-20 07:04 | Diag Imaging Result Doc PS360 ---
CHEST-1 VIEW - 03/20/2019 INDICATION: SOB COMPARISON: 03/19/2019 FINDINGS: Stable layering opacification of the left lower lung field most likely involving a pleural effusion. The right lung appears clear. Heart size and pulmonary vascularity remain normal. IMPRESSION: No change from prior. Stable left pleural effusion. Electronically signed by Lavelle Saavedra 03/20/2019 7:02 AM
[2019-03-20] MEDS: MAXIPIME 1 GM in NS 50 ML IV SCH ×2 (08:50→20:24)
[2019-03-20] MEDS: CORDARONE PO SCH (08:50)
[2019-03-20] MEDS: FLOMAX PO SCH (08:50)
[2019-03-20] MEDS: TOPROL XL PO SCH (08:50)
[2019-03-20] MEDS: LEVAQUIN 500 MG/D5W 500 MG/100 ML IVPB IV SCH (09:26)
--- NOTE | 2019-03-20 15:18 | GENERAL SURGERY PROGRESS NOTE ---
DATE: 03/20/2019 SUBJECTIVE: Doing well. He has ambulated, bowels function, tolerate clear liquids. No fevers, no tachycardia. Blood pressure 131/57, O2 saturation 100% on 3 L.General: He is alert. Abdomen soft. Femoral pulses are readily palpable. Incision is intact. LAB: White count 18, hematocrit 25, creatinine is 0.9. ASSESSMENT/PLAN: 68-year-old gentleman status post ruptured abdominal aortic aneurysm repair. Overall he is doing okay. Chest x-ray shows changes consistent with left effusion, possible consolidation here. He has been rate controlled as far as atrial fibrillation goes. He has been diuresed by Dr. Botello. He is on PPI. He is on Levaquin, cefepime and he is on SCDs as far as DVT prophylaxis. I will start him on Lovenox. Given his rising white count I will check a C difficile. His Trejo is out, his incision is intact and his IVs have been changed. Will monitor for now. cc: MD Jesse Pizarro MD
--- NOTE | 2019-03-20 16:09 | PROGRESS NOTE ---
DATE: 03/20/2019 SUBJECTIVE: This morning, Mr. Reyna refers to be doing a whole lot better. He said he has had some bowel movement. He denies any abdominal pain. Trejo catheter is also out. OBJECTIVE: Vital Signs: Blood pressure is 131/57, pulse of 76, respirations 18, temperature 97.7 degrees. The patient was saturating 100% on 3 L. General: Mr. Reyna is a 68-year-old male. He was in bed, no distress. HEENT: Mucosa is pink and moist. Anicteric. Acyanotic. Neck: Supple. Chest: Good air entry bilateral, mildly reduced to the left posterior lung field. Cardiovascular: Regular rate and rhythm. No murmurs, no rubs, no gallops. Abdomen: Soft, minimally distended, but nontender. Bowel sounds present. There is a surgical wound on the mid anterior abdominal wall which is affronted with surgical clips. It looks clean. There are no secretions. No bleeding. Extremities: No pedal edema. Trejo catheter has been removed. Neurologic: Patient is awake, alert, follows commands. He is legally blind. LABORATORY DATA: WBC is 18.33, hemoglobin is 8.5, platelet count of 139,000. Chemistry is also reviewed, potassium is 3.3. Rest of chemistry is unremarkable. ASSESSMENT: 1. Status post open repair of a ruptured abdominal aneurysm. Today is day 7 postop. Surgery is on board. Patient is doing a lot better. 2. Acute hypoxemic respiratory failure after abdominal surgery. The patient was initially intubated. He is currently day 6 post extubation. He is saturating well on nasal cannula. 3. Left lingular and lower lobe pneumonia associated with pleural effusion. Sputum cultures positive for Branhamella catarrhalis. The patient is still on some on cefepime and Levaquin. Today is day 4 and day 5 respectively. White cell count went up slightly today, so we plan to continue both antibiotics. If the white cell count continues to go up, I think the patient would benefit from a diagnostic left thoracentesis to rule out any empyema. 4. Acute kidney injury secondary to volume depletion, improved. 5. Normocytic anemia on top of anemia of acute blood loss. The patient is status post packed red blood cell transfusion. Hemoglobin and hematocrit this morning is fairly stable, is actually a little better than yesterday, so we are going to continue observing. 6. Diarrhea, resolved. 7. New onset of atrial fibrillation with rapid ventricular response. The patient is on amiodarone and metoprolol. Surgery is on board. 8. Left upper extremity swelling. Ultrasound is negative for deep venous thrombosis. We think it is just fluid infiltration. In general, I think Mr. Reyna is doing a lot better. Trejo catheter has been removed. He seems to be tolerating some meals. He has had 1 bowel movement today and he did also yesterday. His white cell count went up slightly this morning. We are going to keep an eye on this. He still has a left pleural effusion. If his white cell count continues to go up, I think it would be reasonable to do a diagnostic paracenteses to rule out any infected effusion. We are going to continue the current antimicrobial coverage and we will continue to follow the patient. I also think Mr. Reyna can potentially be transferred to the regular surgical floor since he seems to be more stable. Mr. Reyna is under the Surgery team and we have been consulted. cc: Jesse Duran MD
--- NOTE | 2019-03-20 17:19 | CARDIOLOGY PROGRESS NOTE ---
DATE: 03/20/2019 SUBJECTIVE: The patient reports he is doing well. He has had a bowel movement. He has no pain complaints. He has been ambulating. He denies any palpitations. OBJECTIVE: Vital signs: Afebrile. Heart rate is 76, blood pressure is 131/57. General: No acute distress. Cardiovascular: He sounds to be in a regular rate and rhythm. He has no murmurs. Telemetry shows sinus. He has no lower extremity edema. Chest: Exam is clear bilaterally. He has no increased work of breathing. Abdomen: Soft, nontender, nondistended. He has no obvious organomegaly. PERTINENT DATA: His white count is 18.3, which is up from 11.7 yesterday. His hematocrit is 25.9 after transfusion on the when it was 21.3. His platelet count was 139,000. Sodium is 137, potassium is 3.3, BUN 26, creatinine 0.9. ASSESSMENT: Mr. Reyna is a 68-year-old gentleman who presented with a ruptured abdominal aortic aneurysm. Subsequently developed atrial fibrillation during the hospitalization. PLAN: Actually after calculation of his CHADS-VASc score, it appears to be 2 for age as well as peripheral vascular disease in the form of the abdominal aortic aneurysm. He would be recommended for anticoagulation based on this. He did require transfusion a couple of days ago so I would hold off on that currently. Currently, he is on amiodarone. I will not make any changes but would likely initiate Eliquis at the time of discharge if okay from the primary team. cc: MD Jesse Ford MD
--- NOTE | 2019-03-20 19:01 | NEPHROLOGY PROGRESS NOTE ---
DATE: 03/20/2019 SUBJECTIVE: Patient currently resting in bed. He is in no acute distress. OBJECTIVE: Vital Signs: Temperature 97.5 degrees, pulse 82, respiratory rate 15, blood pressure 123/49, intake 1.9 L, output 2.1 L. General: Elderly gentleman resting in bed. He is in no acute distress. HEENT: Normocephalic, atraumatic. His oral mucosa appears dry. Neck: Supple. No JVD. Cardiovascular: Regular. Pulmonary: Equal excursion. Abdomen: Positive bowel sounds. : Not inspected. Extremities: No clubbing, cyanosis. Continues with 2+ edema on the upper extremities. Integumentary: Skin is pale, warm, and dry. LAB DATA: WBC of 18.3, hemoglobin 8.5. Sodium 137, potassium 3.3, CO2 30, creatinine 0.9. ASSESSMENT AND PLAN: Acute kidney injury. Urine output is excellent. His creatinine is normal. We will sign off at this time. If we can be of further assistance, please do not hesitate to contact us. Dictated by CLARK Vazquez for Lamin Lunsford MD Face to face encounter, data reviewed, discussed with Karl Frye on 03/20/19. I agree with the above assessment and plan of care. cc: MD Jesse Pennington MD [facility]
[2019-03-20] MEDS: PROTONIX PO SCH (20:24)
[2019-03-21] MEDS: ZOFRAN IV PRN ×2 (02:00→20:35)
[2019-03-21] MEDS: MORPHINE IV PRN ×2 (02:01→20:35)
[2019-03-21 05:55] LABS: BASO# 0.03 X1000 (0.0-0.2); BASO% 0.2 % (0.0-0.8); EOS# 0.39 X1000 (0.0-0.7); HEMATOCRIT 26.5 % (42.0-52.0); HEMOGLOBIN 8.5 g/dL (14.0-18.0); IMM GRAN# 0.13 X1000 (0.0-0.04); IMM GRAN% 0.7 % (0.0-0.5); LYMPH# 1.01 X1000 (1.2-3.4); LYMPH% 5.2 % (20.5-51.1); MCH 27.7 PG (27-31); MCHC 32.1 g/dL (33-37); MCV 86.3 FL (81-99); MONO# 1.07 X1000 (0.11-0.59); MONO% 5.5 % (1.7-9.3); MPV 10.1 FL (7.4-10.4); NEUT# 16.86 X1000 (1.4-6.5); NEUT% 86.4 % (42.2-75.2); PLT 161 X1000 (130-400); RBC 3.07 XMIL (4.7-6.1); RDW 15.4 % (11.5-14.5); WBC 19.49 X1000 (4.8-10.8)
[2019-03-21 06:10] LABS: AGAP 9; BUN 23 mg/dL (8-22); CALCIUM 7.5 mg/dL (8.8-10.2); CHLORIDE 102 mmol/L (98-107); COSMO 277; CREATININE 0.8 mg/dL (0.7-1.2); ESTIMATED GFR > 60; GLUCOSE 120 mg/dL (70-104); POTASSIUM 3.4 mmol/L (3.5-5.1); SODIUM 136 mmol/L (136-145); TCO2 25 mmol/L (25-35)
[2019-03-21 06:24] LABS: LYMPHS 8 % (21-51); MONO 4 % (1-9); SEGS 88 % (42-75)
--- NOTE | 2019-03-21 06:49 | Diag Imaging Result Doc PS360 ---
EXAM: CHEST-1 VIEW HISTORY: SOB TECHNIQUE: Portable chest single view COMPARISON: 03/20/2019 FINDINGS: There is trace moderate-sized left pleural effusion. There is basilar atelectasis and there may be underlying infiltrates. The heart is not enlarged. Mild vascular distention. The right lung is clear. IMPRESSION: Stable chest. Electronically signed by Ben Hess 03/21/2019 6:46 AM
[2019-03-21] MEDS: CORDARONE PO SCH (09:37)
[2019-03-21] MEDS: MAXIPIME 1 GM in NS 50 ML IV SCH ×2 (09:37→20:23)
[2019-03-21] MEDS: FLOMAX PO SCH (09:37)
[2019-03-21] MEDS: TOPROL XL PO SCH (09:37)
[2019-03-21] MEDS: LEVAQUIN 500 MG/D5W 500 MG/100 ML IVPB IV SCH (09:38)
--- NOTE | 2019-03-21 13:51 | Diag Imaging Result Doc PS360 ---
CT THORAX W/O CONTRAST - 03/21/2019 INDICATION: SOB COMPARISON: Prior chest x-rays FINDINGS: There is a small right and moderate left pleural effusion. The depth on the right side as well 4 cm. The depth on the left side is about 6.5 cm. There is some passive atelectasis of both lower lobes, which is essentially complete on the left side. There is a granuloma in the right middle lobe. No infiltrates in the lungs. Airways are all clear. Anemia is present. Heart size is normal with no pericardial effusion. There is mild body wall edema. IMPRESSION: Small right and moderately large left pleural effusions. This exam was performed using automated exposure control, adjustment of mA or kV according to patient size, and/or use of iterative reconstruction technique Electronically signed by Lavelle Saavedra 03/21/2019 1:49 PM
[2019-03-21] MEDS ORDERED: KLOR-CON PO ONE (15:27)
--- NOTE | 2019-03-21 15:52 | PROGRESS NOTE ---
DATE: 03/21/2019 SUBJECTIVE: The patient resting comfortable. OBJECTIVE: Vital signs: As follows: Temperature 98.3, pulse 85, respirations 20, blood pressure is 130/54. Oxygen saturation 97%. HEENT: Atraumatic, normocephalic. Cardiovascular: S1, S2. Respiratory: Has evidence of good air entry bilaterally. Abdomen: Soft. Nontender. Wound site dressed. Extremities: No evidence of edema. Central Nervous System: No obvious focal deficits noted. LABORATORY DATA: WBC is 19.49, hematocrit 26.5, with a platelet count of 161,000. Sodium is 136, potassium 3.4 chloride 102, bicarb 25, BUN is 20, creatinine 0.8. ASSESSMENT AND PLAN: 1. Status post repair of ruptured abdominal aortic abdominal aneurysm. Surgery following. 2. Acute hypoxemic respiratory failure. Continue oxygen supplementation. 3. Left lingular as well as left lower lobe pneumonia .The patient is currently on cefepime as well as Levaquin. 4. Acute kidney injury. Follow up on renal function. Avoid nephrotoxic agent. 5. Anemia. Follow up on hemoglobin, hematocrit. Transfuse PRBCs as needed. 6. Atrial fibrillation. Continue rate controlling agent as well as amiodarone. 7. DVT prophylaxis. SCD. 8. GI prophylaxis. PPI. cc: Karthik Cisneros MD MTDD
--- NOTE | 2019-03-21 17:27 | Extremity Venous Study ---
PROCEDURE NAME: Venous U/S Left Arm - 03/18/2019 INTERPRETING PHYSICIAN: Dr. Brink. TECH: Issa. REFERRING PHYSICIAN: Dr. Duran . Patient has swelling in the left upper extremity. The internal jugular, subclavian, axillary, brachial, cephalic, basilic veins are identified. There is a branch off the cephalic vein in the forearm that is noncompressible. All the veins are compressible. INTERPRETATION: Superficial venous thrombosis involving the branch off the cephalic vein in the forearm. There is no evidence of deep venous thrombosis. cc: MD Jesse Colon MD Clement Okinedo, MD
[2019-03-21] MEDS: PROTONIX PO SCH (20:23)
[2019-03-21] MEDS: LOVENOX SUBQ SCH (20:23)
--- NOTE | 2019-03-21 20:31 | GENERAL SURGERY PROGRESS NOTE ---
DATE: 03/21/2019 SUBJECTIVE: Doing okay. No fevers overnight. No tachycardia. PHYSICAL EXAMINATION: Vital Signs: Blood pressure 125/61, oxygen saturation 95%. General: He is alert. He is on nasal cannula. No acute distress. Abdomen: Abdomen is soft. Incision intact. His extremities are well perfused with palpable pulses and no edema. His IVs sites are without erythema. No palpable cord. LABORATORY: White count 19, hematocrit 26, creatinine 0.8, glucose 120. ASSESSMENT AND PLAN: I reviewed his orders. He is on Levaquin and cefepime, amiodarone, Protonix, metoprolol, Flomax. He has got SCDs in place. I am going to resume his Lovenox. This was held for some down trending hematocrit a couple days ago, but we will resume this. Otherwise, we will continue to get out of bed, ambulating. I do think he is going to go to rehab facility unless he makes strides going forward. He is on a soft diet. Overall, I think he is doing very well. cc: MD Karthik Pizarro MD
[2019-03-22] MEDS: MORPHINE IV PRN ×5 (00:15→21:46)
[2019-03-22 06:22] LABS: BASO# 0.02 X1000 (0.0-0.2); BASO% 0.1 % (0.0-0.8); EOS# 0.38 X1000 (0.0-0.7); EOS% 2.6 % (0.0-10.0); HEMATOCRIT 25.6 % (42.0-52.0); HEMOGLOBIN 8.2 g/dL (14.0-18.0); IMM GRAN# 0.09 X1000 (0.0-0.04); IMM GRAN% 0.6 % (0.0-0.5); LYMPH# 1.09 X1000 (1.2-3.4); LYMPH% 7.5 % (20.5-51.1); MCH 27.6 PG (27-31); MCV 86.2 FL (81-99); MONO# 0.88 X1000 (0.11-0.59); MPV 10.2 FL (7.4-10.4); NEUT# 12.15 X1000 (1.4-6.5); NEUT% 83.2 % (42.2-75.2); PLT 195 X1000 (130-400); RBC 2.97 XMIL (4.7-6.1); RDW 15.2 % (11.5-14.5); WBC 14.61 X1000 (4.8-10.8)
[2019-03-22 06:35] LABS: AGAP 9; BUN 20 mg/dL (8-22); CALCIUM 7.2 mg/dL (8.8-10.2); CHLORIDE 103 mmol/L (98-107); COSMO 275; CREATININE 0.8 mg/dL (0.7-1.2); ESTIMATED GFR > 60; GLUCOSE 113 mg/dL (70-104); POTASSIUM 3.6 mmol/L (3.5-5.1); SODIUM 136 mmol/L (136-145); TCO2 24 mmol/L (25-35)
--- NOTE | 2019-03-22 07:35 | Diag Imaging Result Doc PS360 ---
EXAM: CHEST-1 VIEW INDICATION: SOB TECHNIQUE: One view COMPARISON: 03/21/2019 FINDINGS: There is suggestion of a left-sided pleural effusion that is stable. Adjacent atelectasis and/or infiltrate is unchanged on the left. No new consolidation is identified. Cardiac silhouette is stable. IMPRESSION: Stable chest. Electronically signed by Zack Grant 03/22/2019 7:33 AM
[2019-03-22] MEDS: TOPROL XL PO SCH (08:06)
[2019-03-22] MEDS: FLOMAX PO SCH (08:06)
[2019-03-22] MEDS: CORDARONE PO SCH (08:06)
[2019-03-22] MEDS: MAXIPIME 1 GM in NS 50 ML IV SCH ×2 (08:06→21:08)
[2019-03-22] MEDS: LEVAQUIN 500 MG/D5W 500 MG/100 ML IVPB IV SCH (09:23)
[2019-03-22 12:03] LABS: INR 1.14; PROTIME 15.5 Seconds (11.0-16.0)
--- NOTE | 2019-03-22 12:08 | PROGRESS NOTE ---
DATE: 03/22/2019 SUBJECTIVE: The patient is resting comfortably. Not in any obvious distress. OBJECTIVE: Vital Signs: Temperature 97.7 degrees, pulse 82, respiratory rate is 18, blood pressure 112/57, oxygen saturation is 97%. HEENT: Atraumatic, normocephalic. Cardiovascular System: S1 and S2. Respiratory System: Has evidence of good air entry bilaterally. Abdomen: Soft, nontender. No masses felt. Wound site looks clean and dry. Extremities: No evidence of significant edema. Central Nervous System: No obvious focal deficit noted. Labs: WBCs 14.61, hematocrit is 25.6, with a platelet count of 195,000. Sodium is 136, potassium 3.6, chloride is 103, bicarb is 24, BUN is 20, creatinine 0.8. ASSESSMENT AND PLAN: 1. Status post repair of ruptured abdominal aortic aneurysm. Surgery following. 2. Acute respiratory failure. Continue supplemental oxygen. 3. Pneumonia. Continue antibiotics. Follow up on sputum culture which is actually positive for Branhamella catarrhalis. 4. Acute kidney injury. Follow up on renal function. Avoid nephrotoxic agents. 5. Anemia. Follow up on hemoglobin and hematocrit. Transfuse packed red blood cells as needed. 6. Atrial fibrillation. Continue rate controlling agent as well as amiodarone. 7. Deep vein thrombosis prophylaxis. Sequential compression devices. 8. Gastrointestinal prophylaxis. Proton pump inhibitor. 9. Disposition. Plan for rehab placement. cc: Karthik Cisneros MD
--- NOTE | 2019-03-22 14:59 | Diag Imaging Result Doc PS360 ---
EXAM: CHEST-2 VIEWS INDICATION: POST LEFT THORA TECHNIQUE: 2 views COMPARISON: 03/22/2019 FINDINGS: There has been significant improvement of the left pleural fluid collection status post left thoracentesis. There is only a small amount of remaining pleural fluid layering in the costophrenic sulcus. There is no evidence of pneumothorax status post centesis. There is better aeration of the left lung base as compared to the previous study. No new consolidations are identified. Cardiac silhouette is stable. IMPRESSION: No evidence of pneumothorax status post left thoracentesis. Electronically signed by Zack Grant 03/22/2019 2:57 PM
--- NOTE | 2019-03-22 15:02 | Diag Imaging Result Doc PS360 ---
EXAM: US THORACENTESIS W/IMAGE GUIDE INDICATION: Therapeutic and diagnostic TECHNIQUE: COMPARISON: None. FINDINGS: Risks, benefits, and alternatives were discussed with the patient and informed consent was obtained. Patient was prepped and draped in sterile fashion and local anesthesia was achieved with 1% lidocaine solution. Using ultrasound guidance, a large bore catheter was inserted into the left pleural space and 1500 mL of dark red sanguinous fluid was aspirated. There were no known complications. A postprocedural chest radiograph showed no pneumothorax. IMPRESSION: Technically successful ultrasound-guided left thoracentesis. Electronically signed by Zack Grant 03/22/2019 2:59 PM
[2019-03-22 15:49] LABS: PH BODY FLUID 8; SPECIMEN PLEURAL FLUID
[2019-03-22 16:07] LABS: BODY FLUID SOURCE PLEURAL FLUID; WBC BF 4908 /cumm
[2019-03-22 16:26] LABS: TOTAL PROT BODY FLUID 2.2 g/dL
[2019-03-22 16:27] LABS: AMYLASE BODY FLUID 13 U/L; GLUCOSE BODY FLUID 116 mg/dL
[2019-03-22 16:34] LABS: MONOS 26 %; POLYS 74 %
[2019-03-22 16:40] LABS: LDH BODY FLUID 1700 U/L
[2019-03-22] MEDS: PROTONIX PO SCH (21:09)
[2019-03-23] MEDS: MORPHINE IV PRN ×2 (02:40→20:56)
[2019-03-23 06:02] LABS: BASO# 0.02 X1000 (0.0-0.2); BASO% 0.1 % (0.0-0.8); EOS# 0.24 X1000 (0.0-0.7); EOS% 1.7 % (0.0-10.0); HEMATOCRIT 25.5 % (42.0-52.0); HEMOGLOBIN 8.2 g/dL (14.0-18.0); IMM GRAN# 0.07 X1000 (0.0-0.04); IMM GRAN% 0.5 % (0.0-0.5); LYMPH# 1.14 X1000 (1.2-3.4); LYMPH% 8.3 % (20.5-51.1); MCH 27.5 PG (27-31); MCHC 32.2 g/dL (33-37); MCV 85.6 FL (81-99); MONO# 0.99 X1000 (0.11-0.59); MONO% 7.2 % (1.7-9.3); NEUT# 11.26 X1000 (1.4-6.5); NEUT% 82.2 % (42.2-75.2); PLT 223 X1000 (130-400); RBC 2.98 XMIL (4.7-6.1); RDW 15.2 % (11.5-14.5); WBC 13.72 X1000 (4.8-10.8)
[2019-03-23 06:16] LABS: AGAP 6; BUN 19 mg/dL (8-22); CALCIUM 7.4 mg/dL (8.8-10.2); CHLORIDE 104 mmol/L (98-107); COSMO 273; CREATININE 0.8 mg/dL (0.7-1.2); ESTIMATED GFR > 60; GLUCOSE 119 mg/dL (70-104); POTASSIUM 3.6 mmol/L (3.5-5.1); SODIUM 135 mmol/L (136-145); TCO2 25 mmol/L (25-35)
--- NOTE | 2019-03-23 07:20 | Diag Imaging Result Doc PS360 ---
EXAM: CHEST-1 VIEW 03/23/2019 HISTORY: SOB TECHNIQUE: AP portable at 0543 COMMENT: There is hazy opacity bilaterally which has worsened since 03/22/2019. There is denser opacification with air bronchograms in the left lower lobe. IMPRESSION: Worsening pulmonary edema. Pneumonia left lower lobe. Electronically signed by Fly Tabares 03/23/2019 7:18 AM
[2019-03-23] MEDS: MAXIPIME 1 GM in NS 50 ML IV SCH ×2 (10:03→20:51)
[2019-03-23] MEDS: FLOMAX PO SCH (10:03)
[2019-03-23] MEDS: TOPROL XL PO SCH (10:03)
[2019-03-23] MEDS: CORDARONE PO SCH (10:03)
[2019-03-23] MEDS: LEVAQUIN 500 MG/D5W 500 MG/100 ML IVPB IV SCH (10:03)
--- NOTE | 2019-03-23 17:03 | PROGRESS NOTE ---
DATE: 03/23/2019 SUBJECTIVE: Patient resting comfortable in bed. Has son present in the room. OBJECTIVE: Vital signs: Temperature 98.4, pulse 82, respirations 18, blood pressure 123/50, oxygen 94%. HEENT: Atraumatic, normocephalic. Cardiovascular: S1, S2. Respiratory: Has evidence of good air entry bilaterally. Abdomen: Soft, nontender. No masses felt. Wound site looks clean and dry. Extremities: No evidence of edema. Central Nervous System: No obvious focal deficits noted. LABS: WBCs 13.72, hematocrit 25.5 with a platelet count of 223. Sodium is 135, potassium 3.6, chloride 104, bicarb 25, BUN 19, creatinine 0.8. ASSESSMENT AND PLAN: 1. Status post repair of ruptured abdominal aortic aneurysm. Surgery is following. 2. Acute respiratory failure. Continue supplemental oxygen. 3. Pneumonia. Continue antibiotics. Follow up on chest x-ray. 4. Acute kidney injury. Follow up on renal function. Avoid nephrotoxic agents. 5. Anemia. Follow up on hemoglobin, hematocrit. Transfuse packed red blood cells as needed. 6. Atrial fibrillation. Continue rate-controlling agent as well as amiodarone. 7. Deep vein thrombosis prophylaxis. Sequential compression devices. 8. Gastrointestinal prophylaxis. Proton pump inhibitor. 9. Disposition. Plan is for rehab placement. cc: Karthik Cisneros MD
[2019-03-23] MEDS: PROTONIX PO SCH (20:51)
--- NOTE | 2019-03-23 20:51 | GENERAL SURGERY PROGRESS NOTE ---
DATE: 03/23/2019 SUBJECTIVE: Feeling better after thoracentesis yesterday. No fevers, no tachycardia overnight. He remains on 3 L. OBJECTIVE: General: He is alert. abdomen: Abdomen is soft. Extremities: Extremities are well perfused. LABORATORIES: White count is down to 13. Creatinine 0.8. ASSESSMENT AND PLAN: A 68-year-old gentleman status post repair of ruptured abdominal aortic aneurysm. Doing well. X-ray looks appropriate today. Plan for rehab soon. He is on antibiotics for pneumonia. He is on prophylactic Lovenox and I have started aspirin. He is on amiodarone for his atrial fibrillation. cc: MD Karthik Pizarro MD
[2019-03-24] MEDS: MORPHINE IV PRN ×3 (00:20→22:23)
[2019-03-24 05:57] LABS: BASO# 0.02 X1000 (0.0-0.2); BASO% 0.2 % (0.0-0.8); EOS% 1.8 % (0.0-10.0); HEMATOCRIT 25.5 % (42.0-52.0); HEMOGLOBIN 8.3 g/dL (14.0-18.0); IMM GRAN# 0.04 X1000 (0.0-0.04); IMM GRAN% 0.4 % (0.0-0.5); LYMPH# 1.14 X1000 (1.2-3.4); LYMPH% 10.4 % (20.5-51.1); MCHC 32.5 g/dL (33-37); MCV 86.1 FL (81-99); MONO# 0.93 X1000 (0.11-0.59); MONO% 8.5 % (1.7-9.3); MPV 9.8 FL (7.4-10.4); NEUT% 78.7 % (42.2-75.2); PLT 237 X1000 (130-400); RBC 2.96 XMIL (4.7-6.1); RDW 15.2 % (11.5-14.5); WBC 10.93 X1000 (4.8-10.8)
[2019-03-24 06:30] LABS: AGAP 9; BUN 20 mg/dL (8-22); CALCIUM 7.4 mg/dL (8.8-10.2); CHLORIDE 101 mmol/L (98-107); COSMO 276; CREATININE 0.8 mg/dL (0.7-1.2); ESTIMATED GFR > 60; GLUCOSE 118 mg/dL (70-104); POTASSIUM 3.6 mmol/L (3.5-5.1); SODIUM 136 mmol/L (136-145); TCO2 26 mmol/L (25-35)
--- NOTE | 2019-03-24 07:15 | Diag Imaging Result Doc PS360 ---
EXAM: CHEST-1 VIEW 03/24/2019 HISTORY: SOB TECHNIQUE: AP portable at 0526 COMMENT: There continues to be volume loss and opacity in the left lower lobe. The lungs are slightly clearer than they were on 03/23/2019 despite the relatively suboptimal inspiration. IMPRESSION: Improved pulmonary edema. Left lower lobe atelectasis and/or pneumonia. Electronically signed by Fly Tabares 03/24/2019 7:13 AM
[2019-03-24] MEDS: TOPROL XL PO SCH (09:10)
[2019-03-24] MEDS: FLOMAX PO SCH (09:10)
[2019-03-24] MEDS: MAXIPIME 1 GM in NS 50 ML IV SCH ×2 (09:10→20:52)
[2019-03-24] MEDS: CORDARONE PO SCH (09:10)
[2019-03-24] MEDS: ASPIRIN PO SCH (09:10)
[2019-03-24] MEDS: LEVAQUIN 500 MG/D5W 500 MG/100 ML IVPB IV SCH (09:11)
--- NOTE | 2019-03-24 11:09 | PROGRESS NOTE ---
DATE: 03/24/2019 SUBJECTIVE: Patient resting in bed. Not in any obvious distress. OBJECTIVE: Vital signs: Temperature is 97.5 degrees, pulse 80, respiratory rate is 18, blood pressure 123/67, oxygen saturation is 96%. HEENT: Atraumatic, normocephalic. Cardiovascular System: S1, S2. Respiratory system has evidence of good air entry bilaterally. Abdomen is soft, nontender. No masses felt. Her wound site, anterior abdomen, looks clean and dry. No obvious discharge from wound. Extremities have trace edema in both lower extremities. Central Nervous System: No obvious focal deficit noted. LABORATORY DATA: WBC is 10.93, hematocrit 25.5, with a platelet count of 237,000. Sodium is 136, potassium 3.6, chloride is 101, bicarbonate 26, BUN is 20, creatinine 0.8. ASSESSMENT AND PLAN: 1. Status post repair of ruptured abdominal aortic aneurysm. The patient seems to be doing well postoperatively and being followed by the surgical team. 2. Acute respiratory failure. Today's x-ray of the chest shows improved pulmonary edema with some left lower lobe atelectasis and/or pneumonia. We will continue to maintain patient on supplemental oxygen. 3. Pneumonia. Continue antibiotics. Follow up on chest x-ray. 4. Pulmonary edema. Use diuretics as needed. Monitor intakes and outputs, as well as daily weights. 5. Acute kidney injury. Follow up on renal function. Avoid nephrotoxic agent. 6. Anemia follow up on hemoglobin and hematocrit. Transfuse PRBCs as needed. 7. Atrial fibrillation. Heart rate is currently controlled. Maintain patient on a rate- controlling agent as well as amiodarone. 8. Deep vein thrombosis prophylaxis. Sequential compression devices. 9. Gastrointestinal prophylaxis. Proton pump inhibitor. 10. Deconditioning. We will recommend PT. DISPOSITION: Plan is for patient to be transferred to rehabilitation once cleared by the surgical team. cc: Karthik Cisneros MD
--- NOTE | 2019-03-24 11:17 | GENERAL SURGERY PROGRESS NOTE ---
DATE: 03/24/2019 SUBJECTIVE: Doing very well. He is tolerating a diet and having no pain. OBJECTIVE: The abdomen was soft. No fevers and no tachycardia. His shortness of breath has improved. He is very weak. His white count is now normal. Hematocrit has been stable. Creatinine is 0.8. ASSESSMENT AND PLAN: This is a 68-year-old gentleman status post repair of ruptured abdominal aortic aneurysm and doing very well. The plan is for rehab when there is a bed available. Otherwise, we will normalize him and guide his diet. We will continue inpatient physical therapy. He is on prophylaxis with Lovenox. He is on antibiotics for pneumonia which I suspect that we can stop soon, aspirin 81 mg, amiodarone, and metoprolol. cc: MD Karthik Pizarro MD
[2019-03-24] MEDS: LOVENOX SUBQ SCH (20:52)
[2019-03-24] MEDS: PROTONIX PO SCH (20:52)
--- NOTE | 2019-03-25 03:03 | DISCHARGE SUMMARY ---
ADMISSION DATE: 03/13/2019 DISCHARGE DATE: 03/25/2019 NOTE: This note was dictated preemptively for planned discharge tomorrow to [facility]. ADMITTING DIAGNOSIS: Ruptured abdominal aortic aneurysm. DISCHARGE DIAGNOSES: Ruptured abdominal aortic aneurysm. PROCEDURE PERFORMED: 1. Open repair of abdominal aortic aneurysm with a bifurcated Dacron graft. 2. Echocardiogram. 3. Left ultrasound-guided thoracentesis. HISTORY OF PRESENT ILLNESS: A 68-year-old gentleman who was swimming at [facility], developed acute onset of abdominal discomfort, a syncopal event. Came the ER where he was found to have a 13.6 cm infrarenal abdominal aortic aneurysm. HOSPITAL COURSE: The patient was taken emergently to the operating room the day of his presentation. For details, please see his dictated operative note. Postoperatively, he was admitted to the ICU and he was extubated the following morning. Did develop an acute renal injury with creatinine rising to as high as 3, but this recovered and he remained nonoliguric during his ICU course. Postoperative day #1, he was weaned off of vasopressors and overall he did very well. He had return of bowel function by day 3 and day 4 or 5 he went fibrillation with RVR which was treated with amiodarone drip and he converted back with beta blockers and amiodarone. He did well. He was ultimately transferred out to our step-down unit. He did have some persistent O2 requirement and left-sided effusion. There was a concern for consolidation early his ICU course and he was treated with antibiotics for greater than a week for presumed ventilator-associated pneumonia. He had a thoracentesis with significant improvement. He was able ambulate. He has tolerated [*]GI soft diet. He was continued on PPI as well as Lovenox during his stay and was started on aspirin 81 mg as well. On the day of his discharge, his incision was intact. He had palpable pedal and femoral pulses. Abdomen was soft and he was on 2 to 3 L nasal cannula. He was felt safe for discharge to rehab for ongoing physical therapy. DIET: GI soft. DISPOSITION: [facility]. FOLLOW UP: Appointment is with me within the next week for staple removal. DISCHARGE INSTRUCTIONS: Given in written and verbal format. MEDICATIONS: Include Protonix 40 mg at bedtime, amiodarone 400 mg p.o. daily, aspirin 81 mg p.o. daily, metoprolol 25 mg p.o. daily, Flomax 0.4 mg p.o. daily. cc: MD Karthik Pizarro MD
[2019-03-25] MEDS: MORPHINE IV PRN (04:53)
[2019-03-25 05:56] LABS: BASO# 0.02 X1000 (0.0-0.2); BASO% 0.3 % (0.0-0.8); EOS# 0.16 X1000 (0.0-0.7); EOS% 2.1 % (0.0-10.0); HEMATOCRIT 23.9 % (42.0-52.0); HEMOGLOBIN 7.7 g/dL (14.0-18.0); IMM GRAN# 0.02 X1000 (0.0-0.04); IMM GRAN% 0.3 % (0.0-0.5); LYMPH# 0.78 X1000 (1.2-3.4); LYMPH% 10.4 % (20.5-51.1); MCH 27.5 PG (27-31); MCHC 32.2 g/dL (33-37); MCV 85.4 FL (81-99); MONO# 0.86 X1000 (0.11-0.59); MONO% 11.5 % (1.7-9.3); MPV 9.8 FL (7.4-10.4); NEUT# 5.63 X1000 (1.4-6.5); NEUT% 75.4 % (42.2-75.2); PLT 286 X1000 (130-400); RDW 15.2 % (11.5-14.5); WBC 7.47 X1000 (4.8-10.8)
[2019-03-25 06:27] LABS: AGAP 10; BUN 20 mg/dL (8-22); CALCIUM 7.2 mg/dL (8.8-10.2); CHLORIDE 100 mmol/L (98-107); COSMO 274; CREATININE 0.8 mg/dL (0.7-1.2); ESTIMATED GFR > 60; GLUCOSE 124 mg/dL (70-104); POTASSIUM 3.5 mmol/L (3.5-5.1); SODIUM 135 mmol/L (136-145); TCO2 25 mmol/L (25-35)
[2019-03-25] MEDS ORDERED: NORCO-10 PO PRN (08:16)
[2019-03-25] MEDS: CORDARONE PO SCH (08:20)
[2019-03-25] MEDS: TOPROL XL PO SCH (08:20)
[2019-03-25] MEDS: ASPIRIN PO SCH (08:20)
[2019-03-25] MEDS: FLOMAX PO SCH (08:21)
--- NOTE | 2019-03-25 09:11 | PROGRESS NOTE ---
DATE: 03/25/2019 SUBJECTIVE: Mr. Zack Reyna is a 68-year-old white male who underwent an urgent open repair of a leaking infrarenal abdominal aortic aneurysm per Dr. Varela on 03/13/2019. He is now on the CICU floor. He is awake. He appears to be comfortable. His abdomen is soft. His midline incision is healing well. He has good palpable bilateral femoral pulses. He is on a GI soft diet which he seems to be tolerating. He does feel weak, but overall I think he is doing well. We are awaiting a bed from [facility] in [place]. OBJECTIVE: His heart rate is 80, blood pressure 118/49, O2 saturation 96%. He is still wearing the nasal cannula, but he has no shortness of breath. He is voiding without difficulty. His urine output is adequate. His BUN and creatinine are 20 and 0.8. The rest of his electrolytes are within normal limits. He is anemic with an hematocrit of 24%, but that seems stable. White blood cell count is normal. Overall, I think he is doing well and we are awaiting a rehab bed. cc: MD Jesse Patel MD
--- NOTE | 2019-03-25 10:28 | PROGRESS NOTE ---
DATE: 03/25/2019 SUBJECTIVE: Mr. Reyna refers to be doing a whole lot better. He is being discharged today to [facility]. OBJECTIVE: Vital signs: His current blood pressure is 118/49, pulse of 80, respirations 16, temperature 98.2 degrees. General: Mr. Reyna is a 68-year-old gentleman. He was in bed. He is not in any cardiopulmonary distress. HEENT: Mucosa is pink and moist. Anicteric. Acyanotic. Neck: Neck is supple. Chest: Good air entry bilaterally. A few crackles in the posterior lung gaines. Cardiovascular: Regular rate and rhythm. Abdomen: Soft. There is a surgical wound which is affronted with clips in the anterior abdominal wall. Extremities: No pedal edema. Central nervous system: Patient is awake, alert, oriented. He is legally blind. LABORATORY DATA: WBC 7.46, hemoglobin is 7.7, platelet count of 286,000. Chemistry is also reviewed, is unremarkable. ASSESSMENT AND PLAN: 1. Status post open repair of ruptured abdominal aneurysm. The patient has significantly improved. He is tolerating oral feedings. He is being discharged to rehab. 2. Acute hypoxemic respiratory failure after abdominal surgery, resolved. 3. Left lingular and lower lobe pneumonia associated with parapneumonic effusion. Sputum culture was positive for Branhamella catarrhalis. He has successfully been treated with IV antibiotics and he has also had ultrasound-guided left thoracentesis. Fluid analysis was suspicious for parapneumonic effusion. 4. Acute kidney injury secondary to volume depletion, resolved. 5. Diarrhea associated with antibiotic use. 6. Atrial fibrillation with rapid ventricular response during hospital course, resolved. 7. Anemia, stable. The patient is currently stable, will be discharged to rehab to continue with his physical rehabilitation. cc: Jesse Duran MD [facility]
[2019-03-25 12:09] VITALS: BP 115/49
== END 2019-03-25 13:07 | DRG 270 ==
LOC: ED 13:34 → ICU 13:35 → SUATTDRO 13:35 → 3S 03-17 18:16
PROVIDERS: ADMIT Internal Medicine; ATTEND Surgery
CPT/HCPCS: 32421; 32555; 36430; 51702; 71010; 71020; 71045; 71046; 71250; 74000; 74018; 74177; 76770; 80048; 80053; 80069; 80076; 81001; 82150; 82270; 82306; 82330; 82550; 82553; 82570; 82805; 82945; 82948; 83036; 83605; 83615; 83735; 83880; 83986; 84132; 84156; 84157; 84300; 84439; 84443; 84484; 85025; 85379; 85384; 85610; 85730; 86850; 86900; 86901; 86920; 87040; 87045; 87046; 87070; 87077; 87205; 87324; 88112; 88304; 88305; 89051; 89055; 93005; 93010; 93306; 93971; 94002; 94003; 94640; 94761; 94799; 96365; 96375; 97162; 97530; 99285; A9270; C1768; C9113; J0171; J0282; J0330; J0610; J0692; J1335; J1644; J1650; J1885; J1940; J1956; J2150; J2250; J2270; J2370; J2405; J3010; J7030; J7040; J7050; J7060; J7070; J7120; P9016; P9017; P9035; P9047; Q9967; S0164; XXXXX